=== PATIENT | male | born 1970 | race American Indian/Alaskan Native ===

== ENCOUNTER 2018-05-25 13:09 | Inpatient (IN) | payer OTHER, BC ==
[2018-05-25 13:10] VITALS: BMI 40.8
[2018-05-25] MEDS ORDERED: Tdap Vaccine 0.5 ml Vial (10-64 yrs) IM ONE ×2 (15:36→16:44)
--- NOTE | 2018-05-25 16:11 | ED PDOC ---
HPI: Trauma/Fall - HPI Time Seen by Provider: 05/25/18 15:21 Chief Complaint (Nursing): Trauma Chief Complaint (Provider): Trauma History Per: Patient History/Exam Limitations: no limitations Onset/Duration Of Symptoms: Days (x 1) Injury Occurred (Timing): Just Before Arrival Location Of Injury: Right: Knee, Left: Knee Additional Complaint(s): 48 year old male with no significant medical history presents for evaluation of bilateral knee pain with right worse than left knee. 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 He accidentally ran into a door when doing so. Patient states that his knees hit the door before he fell to the ground and also landed on both his knees. He complains of difficulty bending his right knee and swellin g at the site as well as an abrasion. Also has pain to LEFT knee. He has been unable to walk since injury. Denies a history of knee injuries, LOC, other injury and distal weakness or numbness. PMD: none provided Past Medical History Reviewed: Historical Data, Nursing Documentation, Vital Signs Vital Signs: Last Vital Signs Temp 97.7 F 05/25/18 13:36 Pulse 88 05/25/18 13:36 Resp 20 05/25/18 13:36 BP 173/103 H 05/25/18 13:36 Pulse Ox 100 05/25/18 13:36 - Medical History PMH: HTN (not on medication) - Surgical History Surgical History: No Surg Hx - Family History Family History: States: Unknown Family Hx - Social History Current smoker - smoking cessation education provided: No - Immunization History Hx Tetanus Toxoid Vaccination: Yes Hx Influenza Vaccination: Yes Hx Pneumococcal Vaccination: Yes - Home Medications Home Medications: Ambulatory Orders Medication Instructions Recorded RX: No Known Home Med 05/26/18 - Allergies Allergies/Adverse Reactions: Allergies Allergy/AdvReac Type Severity Reaction Status Date / Time No Known Allergies Allergy Verified 05/25/18 13:36 Review of Systems ROS Statement: Except As Marked, All Systems Reviewed And Found Negative Musculoskeletal: Positive for: Leg Pain (bilateral knee pain; right side worse than left) Neurological: Negative for: Weakness, Numbness, Headache, Dizziness Physical Exam - Reviewed Nursing Documentation Reviewed: Yes Vital Signs Reviewed: Yes - Physical Exam Appears: Positive for: In Acute Distress (mild painful distress) Head Exam: Positive for: ATRAUMATIC, NORMOCEPHALIC Skin: Positive for: Warm, Dry Eye Exam: Positive for: EOMI, PERRL Neck: Positive for: Painless ROM, Supple Respiratory: Negative for: Accessory Muscle Use, Respiratory Distress Gastrointestinal/Abdominal: Positive for: Soft (obese) Back: Positive for: Normal Inspection. Negative for: Decreased ROM Extremity: Positive for: Normal ROM (Full ROM at left knee without deformity or laxity; minimal swelling at left knee), Deformity (irregular dried abrasion at the patella of right knee; moderate fluctuance surrounding knee especially on the medial side), Other (inability to flex right knee without significant pain; knee is held in extension; otherwise, distally neurovascularly intact) Neurologic/Psych: Positive for: Alert, Oriented (x 3). Negative for: Motor/Sensory Deficits - Laboratory Results Result Diagrams: 05/25/18 23:31 05/25/18 23:31 - ECG O2 Sat by Pulse Oximetry: 100 (RA) Pulse Ox Interpretation: Normal Medical Decision Making Medical Decision Makin:36 Impression: bilateral knee pain; contusion vs fracture Initial Plan: --bilateral knee x-rays --Motrin 600 mg PO --Tetanus .5 ml IJ --Ice Knee xrays demonstrated in fracture or dislocation. However attempted to walk using knee immobilizer and crutches and unable to bear any weight. CT ordered to r/o smaller fracture. 19:31 --CT lower extremities --Ultram 50 ml PO Name: LOS COLÓN Exam Date: May 25, 2018 9:42:23 PM EST Modality Type: CT Description: CT - KNEES, BILATERAL - PATELLOFEMORAL Gender: M Laterality: Bilateral : 68 Referring Physician: Emergency Room direct number CLINICAL HISTORY: Bilateral knee pain S/P fall. TECHNIQUE: Axial CT sequences were obtained through both knees with reformatted coronal and sagittal sequences obtained. COMMENTS: On the right side, eosj-pz-uloyqkor degenerative changes are present. Enthesopathy is noted at the quadriceps insertion. There is small suprapatellar joint effusion. There is large prepatellar fluid collection consistent with prepatellar bursitis. Several bubbles of air are present in the prepatellar space. There is also a single bubble of air present in the lateral compartment space. No acute fracture is identified. There are several ossific fragments present. On the left side, similar changes are present. There is enthesopathy noted at the quadriceps insertion. There are several ossific fragments present in the infrapatellar space, may represent old avulsion injury. Tryrg-ze-duqegekk size joint effusion is present. There is a single bubble of air present in the lateral compartment space. IMPRESSION: 1. Enthesopathy at the quadriceps insertion of bilateral knees. 2. Jxnd-ew-kwpueksj degenerative changes of right knee. 3. Small suprapatellar joint effusion of right knee. 4. Prepatellar bursitis of right knee. 5. Vlqmf-yj-uymccmah size joint effusion of left knee. Electronically signed on May 25, 2018 10:47:57 PM EST by: Telly Molina M.D., MBA Certified By [facility] & [facility] Fellowship Trained MRI and CT Specialist On attempt to walk pt fell to ground again, required multiple people to bring patient back on stretcher. Pt at high risk for traumatic injury with his inability to bear weight on either leg. At this point pt needs hospitalization for further management: ortho evaluation and initiate inpatient therapy for ambulation. Scribe Attestation: Documented by hCristina Marcano, acting as a scribe for Ruby Milan MD Provider Scribe Attestation: All medical record entries made by the Scribe were at my direction and personally dictated by me. I have reviewed the chart and agree that the record accurately reflects my personal performance of the history, physical exam, medi tessa decision making, and the department course for this patient. I have also personally directed, reviewed, and agree with the discharge instructions and disposition. Disposition - Clinical Impression Clinical Impression: Knee injuries, High blood pressure, Knee abrasion Discussed With : Raymundo Taylor Doctor Will See Patient In The: Hospital Counseled Patient/Family Regarding: Studies Performed, Diagnosis - Disposition Disposition Time: 23:00 Condition: FAIR - Pt Status Changed To: Hospital Disposition Of: Inpatient - Admit Certification Admit to Inpatient:: After my assessment, the patient will require hospitalization for at least two midnights. This is because of the severity of symptoms shown, intensity of services needed, and/or the medical risk in this patient being treated as an outpatient. - POA Present On Arrival: Falls Or Trauma
[2018-05-25 23:51] LABS: BASO # 0.1 K/uL (0.0-0.2); BASO % 0.7 % (0.0-2.0); EOS % 0.3 % (0.0-4.0); HEMOGLOBIN 13.9 g/dL (12.0-18.0); LYMPH # 1.3 K/uL (1.0-4.3); LYMPH % 15.5 % (20.0-40.0); MEAN CELL VOLUME 89.8 fl (80.0-94.0); MEAN CORPUSCULAR HEMOGLOBIN 30.2 pg (27.0-31.0); MEAN CORPUSCULAR HGB CONC 33.6 g/dL (33.0-37.0); MEAN PLATELET VOLUME 11.1 fl (7.2-11.7); MONO # 0.6 K/uL (0.0-0.8); MONO % 7.3 % (0.0-10.0); NEUT # 6.4 K/uL (1.8-7.0); NEUT % 76.2 % (50.0-75.0); RBC 4.61 Mil/uL (4.40-5.90); RED CELL DISTRIBUTION WIDTH 14.6 % (11.5-14.5); WHITE BLOOD COUNT 8.4 K/uL (4.8-10.8)
[2018-05-26 00:01] LABS: BLOOD UREA NITROGEN 17 mg/dl (9-20); CALCIUM 9.4 mg/dL (8.4-10.2); GFR NON-AFRICAN AMERICAN > 60
--- NOTE | 2018-05-26 06:52 | CT ---
Date of service: 05/25/2018 PROCEDURE: HISTORY: SEVERE BILATERAL KNEE PAIN S/P FALL COMPARISON: TECHNIQUE: FINDINGS: Extensive bilateral superficial patellar bursal edema. Mild to moderate joint effusion on the left. Probable patellar tendon tear on the left with patella Mari Aisabel. Additional patellar tendon tear on the right with patella [place] and avulsion fracture of the inferior right along the apex. IMPRESSION: Probable bilateral patellar tendon tear is with an avulsion fracture of the right patellar apex. Bilateral joint effusions, left greater than right. Extensive prepatellar bursal edema.
--- NOTE | 2018-05-26 07:53 | RAD ---
Date of service: 05/25/2018 HISTORY: knee pain s/p injury COMPARISON: None available. FINDINGS: BONES: Normal. No fracture. JOINTS: Normal. No osteoarthritis. SOFT TISSUE: Normal. OTHER FINDINGS: None . IMPRESSION: Normal Bone Xray.
[2018-05-26] MEDS ORDERED: Enoxaparin 40 mg Syringe SC SCH (09:00)
[2018-05-26] MEDS ORDERED: Dextrose 5%/0.9% NS 1,000 ML IV SCH (16:15)
[2018-05-26 17:41] LABS: INR 1.1; PROTHROMBIN TIME 12.4 Seconds (9.8-13.1)
[2018-05-27] MEDS ORDERED: Dextrose 5%/0.9% NS 1,000 ML IV SCH (02:17)
--- NOTE | 2018-05-27 10:33 | CP.PCM.HP ---
History of Present Illness - History of Present Illness History of Present Illness: CC: Fall and B/L Knee Pain History of Present Illness A 48 year old male with HX of Essential HTN presents for evaluation of bilateral knee pain with right worse than left knee after a mechanical fall. 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 He accidentally ran into a door when doing so states that his knees hit the door before he fell to the ground and also landed on both his knees. He complains of difficulty bending his right knee and swelling at the site as well as an abrasion. Also has pain to Left knee 4- 11/28. He has been unable to walk since injury. Denies a history of knee injuries, LOC, other injury and distal weakness or numbness. Attempt to walk in the [facility] caused another fall. Denies any ches pain, sob or light headedness. Present on Admission - Present on Admission Any Indicators Present on Admission: No Review of Systems - Review of Systems All systems: reviewed and no additional remarkable complaints except Review of Systems: as per HPI Past Patient History - Past Medical History & Family History Past Medical History?: Yes Past Family History: Reviewed and not pertinent - Past Social History Smoking Status: Never Smoked Alcohol: Social Drugs: Denies - CARDIAC Hx Hypertension: Yes (not on medication) - MUSCULOSKELETAL/RHEUMATOLOGICAL Hx Falls: Yes - PSYCHIATRIC Hx Emotional Abuse: No Hx Physical Abuse: No Hx Substance Use: No - SURGICAL HISTORY Hx Surgeries: Yes Hx Herniorrhaphy: Yes (RIGHT INGUINAL HERNIA 2010) - ANESTHESIA Hx Anesthesia: Yes Hx Anesthesia Reactions: No Hx Malignant Hyperthermia: No Meds Allergies/Adverse Reactions: Allergies Allergy/AdvReac Type Severity Reaction Status Date / Time No Known Allergies Allergy Verified 05/25/18 13:36 Physical Exam - Constitutional Appears: No Acute Distress - Head Exam Head Exam: ATRAUMATIC, NORMAL INSPECTION, NORMOCEPHALIC - Eye Exam Eye Exam: EOMI, Normal appearance, PERRL Pupil Exam: NORMAL ACCOMODATION, PERRL - ENT Exam ENT Exam: Mucous Membranes Moist, Normal Exam - Neck Exam Neck exam: Positive for: Full Rom, Normal Inspection - Respiratory Exam Respiratory Exam: Clear to Auscultation Bilateral, NORMAL BREATHING PATTERN - Cardiovascular Exam Cardiovascular Exam: REGULAR RHYTHM, +S1, +S2, Systolic Murmur - GI/Abdominal Exam GI & Abdominal Exam: Normal Bowel Sounds, Soft. absent: Tenderness - Extremities Exam Extremities exam: Positive for: normal inspection Additional comments: Immobolized - Back Exam Back exam: NORMAL INSPECTION - Neurological Exam Neurological exam: Alert, CN II-XII Intact, Normal Gait, Oriented x3, Reflexes Normal - Psychiatric Exam Psychiatric exam: Normal Affect, Normal Mood - Skin Skin Exam: Dry, Intact, Normal Color, Warm Results - Vital Signs Recent Vital Signs: Last Vital Signs Temp 98 F 05/27/18 08:35 Pulse 85 05/27/18 09:30 Resp 18 05/27/18 08:35 BP 157/85 H 05/27/18 09:30 Pulse Ox 96 05/27/18 08:35 - Labs Result Diagrams: 05/25/18 23:31 05/25/18 23:31 Labs: Laboratory Results - last 24 hr 05/26/18 17:15 PT 12.4 INR 1.1 - Imaging and Cardiology CT scan of Lower Extremity: Status: Report reviewed by me Additional comment: Date of service: 05/25/2018 PROCEDURE: HISTORY: SEVERE BILATERAL KNEE PAIN S/P FALL COMPARISON: TECHNIQUE: FINDINGS: Extensive bilateral superficial patellar bursal edema. Mild to moderate joint effusion on the left. Probable patellar tendon tear on the left with patella [place]. Additional patellar tendon tear on the right with patella [place] and avulsion fracture of the inferior right along the apex. IMPRESSION: Probable bilateral patellar tendon tear is with an avulsion fracture of the right patellar apex. Bilateral joint effusions, left greater than right. Extensive prepatellar bursal edema. Chest x-ray Status: Report reviewed by me Additional comment: Date of service: 05/26/2018 HISTORY: medical clearance COMPARISON: No prior. FINDINGS: LUNGS: No active pulmonary disease. PLEURA: No significant pleural effusion identified, no pneumothorax apparent. CARDIOVASCULAR: No aortic atherosclerotic calcification present. Normal cardiac size. No pulmonary vascular congestion. OSSEOUS STRUCTURES: No significant abnormalities. VISUALIZED UPPER ABDOMEN: Normal. OTHER FINDINGS: None. IMPRESSION: No active disease. Assessment & Plan (1) Traumatic rupture of right patella Status: Acute Priority: High (2) Patellar tendon rupture Status: Acute Priority: High (3) Unable to ambulate Status: Acute Priority: High (4) Hypertension Status: Acute Priority: Medium (5) Morbid obesity Status: Acute Priority: Medium - Assessment and Plan (Free Text) Plan: Pain Medication PRN Labetalol 100mg BID Norvasc 5 mg PO daily IVF Cardiology Consult for Cardiac Clearance Scheduled for Right Patellar Repair Surgery on 05/27/2018 NPO Past Midnight METs Equivalent >4 Medically Cleared for the Surgery with Acceptable Risk if Cleared by [facility].
--- NOTE | 2018-05-27 10:36 | RAD ---
Date of service: 05/26/2018 HISTORY: medical clearance COMPARISON: No prior. FINDINGS: LUNGS: No active pulmonary disease. PLEURA: No significant pleural effusion identified, no pneumothorax apparent. CARDIOVASCULAR: No aortic atherosclerotic calcification present. Normal cardiac size. No pulmonary vascular congestion. OSSEOUS STRUCTURES: No significant abnormalities. VISUALIZED UPPER ABDOMEN: Normal. OTHER FINDINGS: None. IMPRESSION: No active disease.
[2018-05-27] MEDS ORDERED: Bacitracin Ointment 30 GM TUBE ONE (11:05)
[2018-05-27] MEDS ORDERED: ceFAZolin IV 1 gm in Dextrose 2 GM/100 ML BAG IVPB ONE (11:05)
[2018-05-27] MEDS ORDERED: Lactated Ringer's 1,000 ML IV ONE (11:26)
[2018-05-27] MEDS ORDERED: Midazolam 2 MG/2 ML VIAL ONE (11:30)
[2018-05-27] MEDS ORDERED: Propofol 10 mg/ml Inj (20 ML) ONE (11:30)
[2018-05-27] MEDS ORDERED: Rocuronium 10 mg/ml (5 ml) ONE (11:32)
[2018-05-27] MEDS ORDERED: Desflurane Inhalation Anesthetic Liq (240 ml) ONE (12:43)
[2018-05-27] MEDS ORDERED: Neostigmine 1:1000 (1 mg/ml) Inj ONE (13:13)
[2018-05-27] MEDS ORDERED: Bupivacaine 0.5% Inj(30mL) ONE (13:25)
[2018-05-27] MEDS ORDERED: Oxycodone/Acetaminophen 5/325 mg Tab PO PRN (13:46)
[2018-05-27] MEDS: HYDROmorphone 0.5 mg/0.5 ml ISec IVP PRN ×2 (14:00→14:15)
[2018-05-27] MEDS: Lactated Ringer's 1,000 ML IV SCH (15:20)
[2018-05-27] MEDS: Oxycodone/Acetaminophen 5/325 mg Tab PO PRN (16:52)
--- NOTE | 2018-05-27 21:07 | CP.PCM.PN ---
Subjective - Date & Time of Evaluation Date of Evaluation: 05/27/18 Time of Evaluation: 16:35 Objective - Vital Signs/Intake and Output Vital Signs (last 24 hours): Temp Pulse Resp BP Pulse Ox 98.3 F 94 H 16 161/91 H 96 05/27/18 19:38 05/27/18 19:38 05/27/18 19:38 05/27/18 19:38 05/27/18 19:38 Intake and Output: 05/27/18 05/28/18 18:59 06:59 Intake Total 1050 Output Total 400 Balance 650 - Medications Medications: Current Medications Acetaminophen (Tylenol 325mg Tab) 650 mg PO Q6 PRN PRN Reason: Pain, moderate (4-7) Acetaminophen (Tylenol 325mg Tab) 325 mg PO Q4 PRN PRN Reason: Pain, Mild (1-3) Lactated Ringer's (Lactated Ringer's) 1,000 mls @ 100 mls/hr IV .Q10H OTIS Last Admin: 05/27/18 15:20 Dose: 0 mls Oxycodone/Acetaminophen (Percocet 5/325 Mg Tab) 1 tab PO Q4 PRN PRN Reason: Pain, moderate (4-7) Stop: 05/30/18 13:47 Last Admin: 05/27/18 16:52 Dose: 1 tab Oxycodone/Acetaminophen (Percocet 5/325 Mg Tab) 2 tab PO Q6 PRN PRN Reason: Pain, severe (8-10) Stop: 05/30/18 13:47 Tramadol HCl (Ultram) 50 mg PO Q6 PRN PRN Reason: Pain, severe (8-10) Last Admin: 05/27/18 20:54 Dose: 50 mg - Labs Labs: 05/25/18 23:31 05/25/18 23:31 PT 12.4 Seconds (9.8-13.1) 05/26/18 17:15 INR 1.1 05/26/18 17:15 Assessment and Plan (1) Traumatic rupture of right patella Status: Acute (2) Patellar tendon rupture Status: Acute (3) Unable to ambulate Status: Acute (4) Hypertension Status: Acute (5) Morbid obesity Status: Acute
--- NOTE | 2018-05-27 21:27 | CON ---
DATE: 05/27/2018 REASON FOR CONSULTATION: Preoperative evaluation. HISTORY OF PRESENT ILLNESS: The patient is a 48-year-old obese male, who weighs about 280 pounds, has a history of hypertension, but was not treated, presented because of a fall. 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 The patient sustained bilateral knee ligament injury and is being considered for surgery today. The patient denies any retrosternal chest pain. Denies any dizziness or syncope and is unaware of any prior cardiac history. SOCIAL HISTORY: Nonsmoker, occasional drinker. 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 MEDICATIONS: Ultram 50 mg every 6 hours, the patient did receive hydralazine 20 mg as a single dose and Norvasc 5 mg as a single dose and labetalol 100 mg as a single dose. REVIEW OF SYSTEMS: No nausea or vomiting. No fever or chills. PHYSICAL EXAMINATION: GENERAL: The patient is a middle-aged male, who does not appear to be in acute distress. VITAL SIGNS: Blood pressure 157/85, heart rate 85, temperature 98, and respirations 18. HEENT: Normocephalic. CHEST: Clear. HEART: S1 and S2 regular. ABDOMEN: Soft. EXTREMITIES: No edema. LABORATORY DATA: Today's SMA-7: Sodium 140, potassium 3.8, chloride 105, CO2 of 24, glucose 117, BUN 17, and creatinine 0.9. PT and INR are within normal limits. Hemoglobin and hematocrit are 15.9 and 41.4. White count and platelet count are within normal limits. EKG revealed sinus rhythm, questionable incomplete right bundle branch block, possible left atrial enlargement. Chest x-ray, no active disease. Lower extremity CT scan, extensive bilateral superficial patellar bursal edema, mild to moderate joint effusion on the left, probable patellar tendon tear on the left with patella gogo. Additional patellar tendon tear on the right with patella gogo and avulsion fracture of the inferior right along the apex. FINAL IMPRESSION: Bilateral patellar tendon tear with an avulsion fracture of the right patellar apex, bilateral joint effusion, left greater than right, extensive prepatellar bursal edema. ASSESSMENT: 1. Status post fall and bilateral patellar tendon tear and avulsion fracture of the apex of the right patella. 2. Hypertension. RECOMMENDATIONS: The patient can undergo a knee surgery from the cardiac point of view with postoperative telemetry monitoring, close preoperative blood pressure are indicated. Postoperative anticoagulation is also indicated for deep vein thrombosis prophylaxis. Jorge Gerber MD
--- NOTE | 2018-05-28 00:58 | OP ---
PROCEDURE DATE: 05/27/2018 ATTENDING PHYSICIAN: Lorri Sorto MD SHIPPING CLERK CRATING: Martinez Mata MD PREOPERATIVE DIAGNOSES: 1. Right knee complete patellar tendon rupture. 2. Left knee complete patellar tendon rupture. POSTOPERATIVE DIAGNOSES: 1. Right knee complete patellar tendon rupture. 2. Left knee complete patellar tendon rupture. PROCEDURES: 1. Right knee open debridement of bone and soft tissue. 2. Open repair of patellar tendon. 3. Open debridement of bone and soft tissue of left knee. 4. Left open patellar tendon repair. TYPE OF ANESTHESIA: General. ESTIMATED BLOOD LOSS: 100 mL. SPECIMEN: None. COMPLICATIONS: None. HISTORY: Patient is a 48-year-old male who had a mechanical fall landing on to his both knees. Patient was brought to the emergency room where the x-rays were negative for any fracture or dislocation. Patient was unable to straight leg raise. On a CT scan, patient had apparent complete patellar tendon rupture of both knees. Patient was admitted and taken to the operating room next day for patellar tendon repair. I have reviewed the risks and benefits of the surgery with the patient in detail. The risks included but not limited to bleeding, infection, neurovascular damage, continued pain, stiffness, failure to repair, need further surgery, blood clot among others. Patient fully understood the risks and benefits and opted to proceed. DESCRIPTION OF PROCEDURE: On the day of the procedure, patient was brought to preop holding area. A laterality sheet was completed confirming patient's bilateral knees to be the correct operative. Informed consent was signed from the patient and both knees were marked. Patient was taken to the operative room. He underwent general anesthesia. A padded tourniquet was applied to patient's bilateral thigh. He was given appropriate prophylactic antibiotics. The both knees were draped and prepped in standard manner. First, a timeout was completed confirming patient's bilateral knees to be the correct operative site. First, we proceeded with the right knee fixation. The tourniquet was inflated to 350 mmHg. A 6 cm midline incision was made extending over the patella to the tibial tubercle. Skin dissection was taken down. There was complete tear of the patellar tendon that was noted with extensive degeneration of the patellar tendon. An extensive intrasubstance tearing using the 10-blade curettage and rongeur, extensive soft tissue and bone debridement was performed. The hematoma was evacuated for fixation. Two 4.75 SwiveLock anchors were placed on the inferior pole of the patella, and the FiberTape was whipstitched through the patellar tendon in a locking fashion, and all the 4 limbs of FiberTape was tied distally for added fixation. Addition #2 FiberWire was passed from the tendon. An additional 4.75 SwiveLock anchor was placed for internal brace. The retinaculum was also closed and repaired using #2 FiberWire sutures. Finally, the knee was taken to the range of motion, and it was found to be stable without any gapping of the patellar tendon. Next, the wound was copiously irrigated and was closed in standard manner, and a sterile dressing was applied. The tourniquet was deflated. Next, we proceeded with left knee patellar tendon repair. The tourniquet was inflated at 350 mmHg. A similar 6 cm incision was made extending over the patellar tendon. Skin dissection was taken down until the patellar tendon rupture was identified. There was a complete disruption of the patellar tendon. Patellar tendon with intrasubstance tearing using the #10 blade, rongeur and the curette. Extensive soft tissue and bone debridement was performed. Next, in a similar fashion two 4.75 SwiveLock anchors were placed, closed with FiberTape and FiberWire into the inferior pole of patella. The FiberTape was whipstitched through the patellar tendon and tied distally. Next, for additional fixation, FiberWire was placed, and additional SwiveLock anchor was placed at the tibial tubercle. The knee was taken through range of motion, was found to be stable. Next, the retinaculum was closed using #2 FiberWire sutures. The skin was closed in standard manner. Standard sterile dressing was applied. Tourniquet was deflated. Patient was extubated, transferred through a stretcher, taken to recovery room. He was placed in knee mobilizer. His postop instructions included weightbearing as tolerated with knee in full and strict extension. There was no complication of surgery. Dr. Martinez Mata is a board certified orthopedic surgeon who was present for the entirety of the case and his participation was crucial in patient positioning, retraction of critical neurovascular structure and for successful completion of his surgery. Imran Noreen, MD [facility] # [id number] ALLA
[2018-05-28] MEDS: Oxycodone/Acetaminophen 5/325 mg Tab PO PRN ×3 (01:06→16:49)
[2018-05-28] MEDS: Lactated Ringer's 1,000 ML IV SCH (01:13)
--- NOTE | 2018-05-28 02:09 | CON ---
DATE: 05/27/2018 CHIEF COMPLAINT: Bilateral knee patella tendon rupture. HISTORY OF PRESENT ILLNESS: The patient is a 48-year-old male who had a mechanical fall. The patient landed onto his both knees, was unable to ambulate after the fall. The patient presented to the emergency room, but the x-rays and CT scan were taken and no fractures were noted. The patient was unable to walk, unable to straight leg raise or move his bilateral legs, denies pain in any other extremity or joint, denies loss of consciousness currently, not in any acute distress, denies any paresthesias or motor weakness. PHYSICAL EXAMINATION: EXTREMITIES: Examination of the patient's bilateral knee, there is swelling and ecchymosis, there is apparent full thickness defects of the both patella tendons with proximal retraction of the patella. The patient is unable to straight leg raise and extend against gravity. Rest of the exam is limited secondary to pain. Neurovascularly intact distally. IMAGING: I have reviewed the patient's x-rays and CT scan of both knees which shows a complete full thickness patella tendon rupture with proximal retraction of the patella. No fractures are noted. ASSESSMENT AND PLAN: A 48-year-old male with bilateral acute patella tendon rupture treatment. I had a detailed discussion with the patient, reviewing the history, physical exam, and imaging findings due to complete rupture patella tendon, the patient will be taken to the operating room for open bilateral knee patella tendon repair and all indicated procedures. I have reviewed the risks and benefits of the surgery with the patient in detail and the alternatives and the patient would like to proceed. Lorri Sorto MD
[2018-05-28] MEDS ORDERED: Labetalol 5 mg/ml Inj 20ML IVP STA (08:12)
[2018-05-28] MEDS: Docusate-Senna 50 mg-8.6 mg Tab PO SCH (08:14)
[2018-05-28] MEDS: Enoxaparin 40 mg Syringe SC SCH (08:15)
[2018-05-28] MEDS ORDERED: Oxycodone/Acetaminophen 5/325 mg Tab PO PRN (11:30)
--- NOTE | 2018-05-28 11:30 | CP.PCM.PN ---
Subjective - Date & Time of Evaluation Date of Evaluation: 05/28/18 Time of Evaluation: 11:00 - Subjective Subjective: Patient states he was able to get OOB with PT, but that his pain is mod-severe and not controlled with pain medication. He has one step down into his home. Denies CP/SOB/dizziness/numbness/tingling. Objective - Vital Signs/Intake and Output Vital Signs (last 24 hours): Temp Pulse Resp BP Pulse Ox 98.9 F 85 20 187/103 H 93 L 05/28/18 07:56 05/28/18 08:28 05/28/18 07:56 05/28/18 08:28 05/28/18 07:56 - Medications Medications: Current Medications Acetaminophen (Tylenol 325mg Tab) 325 mg PO Q4 PRN PRN Reason: Pain, Mild (1-3) Amlodipine Besylate (Norvasc) 10 mg PO DAILY [facility] Enoxaparin Sodium (Lovenox) 40 mg SC DAILY [facility]; Protocol Last Admin: 05/28/18 08:15 Dose: 40 mg Oxycodone/Acetaminophen (Percocet 5/325 Mg Tab) 1 tab PO Q4 PRN PRN Reason: Pain, moderate (4-7) Stop: 05/30/18 13:47 Last Admin: 05/28/18 08:09 Dose: 1 tab Senna/Docusate Sodium (Senokot S 50 Mg-8.6 Mg) 2 tab PO 0900 [facility] Last Admin: 05/28/18 08:14 Dose: 2 tab Tramadol HCl (Ultram) 50 mg PO Q6 PRN PRN Reason: Pain, severe (8-10) Last Admin: 05/28/18 05:26 Dose: 50 mg - Labs Labs: 05/25/18 23:31 05/25/18 23:31 PT 12.4 Seconds (9.8-13.1) 05/26/18 17:15 INR 1.1 05/26/18 17:15 - Extremities Exam Additional comments: +ROM ankle/toes BLE calves soft NT neg homans sensation intact BLE+DP/PT pulses knee immobilizers intact, again reiterated they are not to be removed at any time Assessment and Plan (1) Rupture of right patellar tendon Assessment & Plan: POD#1 s/p B patellar tendon repairs knee immobilizers at all times not to be removed, reinforced to patient will need VTE proph on d/c continue lovenox x 30 days minimum PT/OT d/c planning orthopedically stable for d/c f/u labs d/w Dr. Sorto, agrees with above Status: Acute (2) Rupture of left patellar tendon Status: Acute (3) Morbid obesity with BMI of 40.0-44.9, adult Status: Acute
[2018-05-28 11:59] LABS: HEMOGLOBIN 13.8 g/dL (12.0-18.0); MEAN CELL VOLUME 91.1 fl (80.0-94.0); MEAN CORPUSCULAR HEMOGLOBIN 30.3 pg (27.0-31.0); MEAN CORPUSCULAR HGB CONC 33.3 g/dL (33.0-37.0); RBC 4.55 Mil/uL (4.40-5.90); RED CELL DISTRIBUTION WIDTH 14.4 % (11.5-14.5); WHITE BLOOD COUNT 11.9 K/uL (4.8-10.8)
[2018-05-28 12:29] LABS: BLOOD UREA NITROGEN 13 mg/dl (9-20); CALCIUM 9.3 mg/dL (8.4-10.2); GFR NON-AFRICAN AMERICAN > 60
--- NOTE | 2018-05-28 13:46 | CARD ---
APPROVED REPORT Date of service: 05/26/2018 EKG Measurement Heart [id number] <Conclusion> Normal sinus rhythm Possible Left atrial enlargement Incomplete right bundle branch block Borderline ECG
--- NOTE | 2018-05-28 16:47 | CARD ---
APPROVED REPORT Date of service: 05/28/2018 EKG Measurement Heart [id number] <Conclusion> Sinus tachycardia Otherwise normal ECG
--- NOTE | 2018-05-28 17:28 | CARD ---
APPROVED REPORT Date of service: 05/28/2018 EXAM: Two-dimensional and M-mode echocardiogram with Doppler and color Doppler. Other Information Quality : GoodRhythm : Tachycardia INDICATION Hypertension/HCVD 2D DIMENSIONS IVSd1.38 (0.7-1.1cm)LVDd4.37 (3.9-5.9cm) LVOT Diameter1.96 (1.8-2.4cm)PWd1.67 (0.7-1.1cm) IVSs1.62 (0.8-1.2cm)LVDs2.83 (2.5-4.0cm) FS (%) 35.3 %PWs1.95 (0.8-1.2cm) M-Mode DIMENSIONS Left Atrium (MM)4.14 (2.5-4.0cm)IVSd1.52 (0.7-1.1cm) Aortic Root3.17 (2.2-3.7cm)LVDd5.38 (4.0-5.6cm) Aortic Cusp Exc.2.18 (1.5-2.0cm)PWd1.57 (0.7-1.1cm) IVSs1.96 cmFS (%) 43 % LVDs3.06 (2.0-3.8cm)PWs2.18 cm Aortic Valve AoV Peak Csqsszwh476.1cm/sAoV VTI29.1cmAO Peak GR.12mmHg LVOT Peak Hhjinkfg317.5cm/sLVOT VTI21.56cmAO Mean GR.8mmHg PAUL (VMAX)0.07at4TFI (VTI)0.93cm2 Mitral Valve E/A ratio0.0 TDI E/Lateral E'0.0E/Medial E'0.0 LEFT VENTRICLE The left ventricle is normal size. There is mild concentric left ventricular hypertrophy. The left ventricular systolic function is normal. The estimated ejection fraction is 60-65% No regional wall motion abnormalities noted.. Transmitral Doppler flow pattern is Grade I-abnormal relaxation pattern. No left ventricle thrombus noted on this study. There is no ventricular septal defect visualized. There is no left ventricular aneurysm. There is no mass noted in the left ventricle. RIGHT VENTRICLE The right ventricle is normal size. There is normal right ventricular wall thickness. The right ventricular systolic function is normal. ATRIA The left atrium is mildly dilated. The right atrium size is normal. The interatrial septum is intact with no evidence for an atrial septal defect. AORTIC VALVE The aortic valve is normal in structure. No aortic regurgitation is present. There is no aortic valvular stenosis. There is no aortic valvular vegetation. MITRAL VALVE The mitral valve is normal in structure. There is no evidence of mitral valve prolapse. There is no mitral valve stenosis. There is mild mitral valve regurgitation noted. TRICUSPID VALVE The tricuspid valve is normal in structure. There is trivial tricuspid valve regurgitation noted. There is no tricuspid valve prolapse or vegetation. There is no tricuspid valve stenosis. PULMONIC VALVE The pulmonary valve is normal in structure. There is no pulmonic valvular regurgitation. There is no pulmonic valvular stenosis. GREAT VESSELS The aortic root is normal in size. The ascending aorta is normal in size. The pulmonary artery is normal. The IVC is normal in size and collapses >50% with inspiration. PERICARDIAL EFFUSION There is no pericardial effusion. There is no pleural effusion. <Conclusion> There is mild concentric left ventricular hypertrophy. The estimated ejection fraction is 60-65% Transmitral Doppler flow pattern is Grade I-abnormal relaxation pattern. The left atrium is mildly dilated. There is mild mitral valve regurgitation noted. There is trivial tricuspid valve regurgitation noted.
--- NOTE | 2018-05-28 19:58 | PN ---
DATE: 05/28/2018 SUBJECTIVE: The patient underwent bilateral patellar tendon repair. He denies chest pain. No reports of ventricular arrhythmia. PHYSICAL EXAMINATION VITAL SIGNS: Blood pressure 171/97, heart rate 98, temperature 98.3, respirations 20. HEENT: Normocephalic. CHEST: Clear. HEART: S1 and S2 regular. EXTREMITIES: No edema. LABORATORY DATA: Today's hemoglobin and hematocrit are 13.8 and 41.5, white count 11.9 and platelet count 144,000. Today's SMA-7 is within normal limits except for glucose of 145. ASSESSMENT: 1. Status post bilateral patellar tendon repair. 2. Uncontrolled hypertension. 3. Obesity. RECOMMENDATIONS: Continue subcutaneous Lovenox 40 mg once a day. Continue Dilaudid 0.5 mg every 4 hours p.r.n. Continue Percocet two tablets every 4 hours p.r.n. Obtain 12-lead EKG postoperatively, and the patient is scheduled for an echocardiogram. Jorge Gerber MD
[2018-05-29] MEDS: Oxycodone/Acetaminophen 5/325 mg Tab PO PRN ×3 (00:39→15:31)
--- NOTE | 2018-05-29 01:44 | CP.PCM.PN ---
Subjective - Date & Time of Evaluation Date of Evaluation: 05/28/18 Time of Evaluation: 07:15 Objective - Vital Signs/Intake and Output Vital Signs (last 24 hours): Temp Pulse Resp BP Pulse Ox 98.4 F 112 H 20 159/87 H 93 L 05/29/18 00:28 05/29/18 00:28 05/29/18 00:28 05/29/18 00:28 05/29/18 00:28 - Medications Medications: Current Medications Acetaminophen (Tylenol 325mg Tab) 325 mg PO Q4 PRN PRN Reason: Pain, Mild (1-3) Amlodipine Besylate (Norvasc) 10 mg PO DAILY [facility] Clonidine HCl (Catapres) 0.2 mg PO BID [facility] Last Admin: 05/28/18 22:00 Dose: 0.2 mg Enoxaparin Sodium (Lovenox) 40 mg SC DAILY [facility]; Protocol Last Admin: 05/28/18 08:15 Dose: 40 mg Hydromorphone HCl (Dilaudid) 0.5 mg IVP Q4H PRN PRN Reason: Pain, severe (8-10) Oxycodone/Acetaminophen (Percocet 5/325 Mg Tab) 2 tab PO Q4 PRN PRN Reason: Pain, moderate (4-7) Stop: 05/31/18 11:29 Last Admin: 05/29/18 00:39 Dose: 2 tab Oxycodone/Acetaminophen (Percocet 5/325 Mg Tab) 1 tab PO Q4 PRN PRN Reason: Pain, Mild (1-3) Stop: 05/30/18 13:47 Last Admin: 05/28/18 12:11 Dose: 1 tab Senna/Docusate Sodium (Senokot S 50 Mg-8.6 Mg) 2 tab PO 0900 [facility] Last Admin: 05/28/18 08:14 Dose: 2 tab Tramadol HCl (Ultram) 50 mg PO Q6 PRN PRN Reason: Pain, severe (8-10) Last Admin: 05/28/18 05:26 Dose: 50 mg - Labs Labs: 05/28/18 11:55 05/28/18 11:55 PT 12.4 Seconds (9.8-13.1) 05/26/18 17:15 INR 1.1 05/26/18 17:15 Assessment and Plan (1) Traumatic rupture of right patella Status: Acute (2) Patellar tendon rupture Status: Acute (3) Unable to ambulate Status: Acute (4) Hypertension Status: Acute (5) Morbid obesity Status: Acute
[2018-05-29 05:50] LABS: HEMOGLOBIN 13.7 g/dL (12.0-18.0); MEAN CELL VOLUME 90.1 fl (80.0-94.0); MEAN CORPUSCULAR HEMOGLOBIN 30.3 pg (27.0-31.0); MEAN CORPUSCULAR HGB CONC 33.7 g/dL (33.0-37.0); RBC 4.52 Mil/uL (4.40-5.90); RED CELL DISTRIBUTION WIDTH 14.4 % (11.5-14.5)
[2018-05-29 06:41] LABS: BLOOD UREA NITROGEN 25 mg/dl (9-20); CALCIUM 9.2 mg/dL (8.4-10.2); GFR NON-AFRICAN AMERICAN > 60
--- NOTE | 2018-05-29 08:47 | CP.PCM.PN ---
Subjective - Date & Time of Evaluation Date of Evaluation: 05/29/18 Time of Evaluation: 08:00 - Subjective Subjective: Patient seen and examined at bedside comfortable. Pain better controlled this AM. Tolerated PT well. No new complaints. Denies CP/SOB/N/V/fever. Objective - Vital Signs/Intake and Output Vital Signs (last 24 hours): Temp Pulse Resp BP Pulse Ox 98.4 F 96 H 18 126/74 94 L 05/29/18 07:53 05/29/18 07:53 05/29/18 07:53 05/29/18 07:53 05/29/18 07:53 - Medications Medications: Current Medications Acetaminophen (Tylenol 325mg Tab) 325 mg PO Q4 PRN PRN Reason: Pain, Mild (1-3) Amlodipine Besylate (Norvasc) 10 mg PO DAILY [facility] Clonidine HCl (Catapres) 0.2 mg PO BID [facility] Last Admin: 05/28/18 22:00 Dose: 0.2 mg Enoxaparin Sodium (Lovenox) 40 mg SC DAILY [facility]; Protocol Last Admin: 05/28/18 08:15 Dose: 40 mg Hydromorphone HCl (Dilaudid) 0.5 mg IVP Q4H PRN PRN Reason: Pain, severe (8-10) Oxycodone/Acetaminophen (Percocet 5/325 Mg Tab) 2 tab PO Q4 PRN PRN Reason: Pain, moderate (4-7) Stop: 05/31/18 11:29 Last Admin: 05/29/18 06:48 Dose: 2 tab Oxycodone/Acetaminophen (Percocet 5/325 Mg Tab) 1 tab PO Q4 PRN PRN Reason: Pain, Mild (1-3) Stop: 05/30/18 13:47 Last Admin: 05/28/18 12:11 Dose: 1 tab Senna/Docusate Sodium (Senokot S 50 Mg-8.6 Mg) 2 tab PO 0900 [facility] Last Admin: 05/28/18 08:14 Dose: 2 tab Tramadol HCl (Ultram) 50 mg PO Q6 PRN PRN Reason: Pain, severe (8-10) Last Admin: 05/28/18 05:26 Dose: 50 mg - Labs Labs: 05/29/18 04:00 05/29/18 06:00 PT 12.4 Seconds (9.8-13.1) 05/26/18 17:15 INR 1.1 05/26/18 17:15 - Extremities Exam Additional comments: RLE: Knee imm in place Dressings CDI Aquacel dressing CDI Dressings removed revealing incision CDI with antonino, no drainage sensation intact SP/DP/TN motor intact EHL/FHL/TA/G calves soft NT LLE: Knee imm in place Dressings CDI Aquacel dressing CDI Dressings removed revealing incision CDI with antonino, no drainage sensation intact SP/DP/TN motor intact EHL/FHL/TA/G calves soft NT Assessment and Plan (1) Rupture of left patellar tendon Assessment & Plan: POD#2 s/p b/l patella tendon repair -Dressings changed -Strict knee immobilizers at all times -DVT ppx -PT/OT -orthopedically stable for d/c -f/u in office in 7-10 days -above d/w Dr. Sorto in agreement Status: Acute (2) Rupture of right patellar tendon Status: Acute
[2018-05-29] MEDS: Docusate-Senna 50 mg-8.6 mg Tab PO SCH (09:02)
[2018-05-29] MEDS: Enoxaparin 40 mg Syringe SC SCH (09:02)
--- NOTE | 2018-05-29 17:00 | PN ---
DATE: 05/29/2018 SUBJECTIVE: The patient denies chest pain. He underwent physical therapy today. PHYSICAL EXAMINATION: VITAL SIGNS: Blood pressure 122/76, heart rate 98, temperature 98.2, respirations 18. HEENT: Normocephalic. CHEST: Clear. HEART: S1 and S2 regular. EXTREMITIES: No edema. LABORATORY DATA: Today's SMA-7: Sodium 136, potassium 4, chloride 97, CO2 of 29, glucose 148, BUN 25, creatinine 1. Today's CBC is within normal limits except for white count of 11. ASSESSMENT: 1. Status post bilateral patellar tendon tear repair. 2. Hypertension. 3. Obesity. RECOMMENDATIONS: Continue clonidine 0.2 mg twice a day, Lovenox 40 mg subcutaneous once a day, Norvasc 10 mg once a day. Jorge Gerber MD
--- NOTE | 2018-05-29 18:17 | CP.PCM.PN ---
Subjective - Date & Time of Evaluation Date of Evaluation: 05/29/18 Time of Evaluation: 15:20 Objective - Vital Signs/Intake and Output Vital Signs (last 24 hours): Temp Pulse Resp BP Pulse Ox 99.2 F 94 H 18 134/76 96 05/29/18 16:21 05/29/18 16:43 05/29/18 16:21 05/29/18 16:43 05/29/18 16:21 - Medications Medications: Current Medications Acetaminophen (Tylenol 325mg Tab) 325 mg PO Q4 PRN PRN Reason: Pain, Mild (1-3) Amlodipine Besylate (Norvasc) 10 mg PO DAILY [facility] Last Admin: 05/29/18 09:01 Dose: 10 mg Clonidine HCl (Catapres) 0.2 mg PO BID [facility] Last Admin: 05/29/18 16:43 Dose: 0.2 mg Enoxaparin Sodium (Lovenox) 40 mg SC DAILY [facility]; Protocol Last Admin: 05/29/18 09:02 Dose: 40 mg Hydromorphone HCl (Dilaudid) 0.5 mg IVP Q4H PRN PRN Reason: Pain, severe (8-10) Oxycodone/Acetaminophen (Percocet 5/325 Mg Tab) 2 tab PO Q4 PRN PRN Reason: Pain, moderate (4-7) Stop: 05/31/18 11:29 Last Admin: 05/29/18 15:31 Dose: 2 tab Senna/Docusate Sodium (Senokot S 50 Mg-8.6 Mg) 2 tab PO 0900 [facility] Last Admin: 05/29/18 09:02 Dose: 2 tab Tramadol HCl (Ultram) 50 mg PO Q6 PRN PRN Reason: Pain, severe (8-10) Last Admin: 05/28/18 05:26 Dose: 50 mg - Labs Labs: 05/29/18 04:00 05/29/18 06:00 PT 12.4 Seconds (9.8-13.1) 05/26/18 17:15 INR 1.1 05/26/18 17:15 Assessment and Plan (1) Traumatic rupture of right patella Status: Acute (2) Patellar tendon rupture Status: Acute (3) Unable to ambulate Status: Acute (4) Hypertension Status: Acute (5) Morbid obesity Status: Acute
[2018-05-30] MEDS: Oxycodone/Acetaminophen 5/325 mg Tab PO PRN ×3 (01:23→23:47)
[2018-05-30 05:18] LABS: HEMOGLOBIN 12.7 g/dL (12.0-18.0); MEAN CELL VOLUME 90.6 fl (80.0-94.0); MEAN CORPUSCULAR HEMOGLOBIN 29.9 pg (27.0-31.0); RBC 4.26 Mil/uL (4.40-5.90); WHITE BLOOD COUNT 11.1 K/uL (4.8-10.8)
[2018-05-30 05:43] LABS: BLOOD UREA NITROGEN 32 mg/dl (9-20); CALCIUM 9.1 mg/dL (8.4-10.2); GFR NON-AFRICAN AMERICAN > 60
[2018-05-30] MEDS: Docusate-Senna 50 mg-8.6 mg Tab PO SCH (08:16)
[2018-05-30] MEDS: Enoxaparin 40 mg Syringe SC SCH (08:17)
--- NOTE | 2018-05-30 12:05 | CP.PCM.PN ---
Subjective - Date & Time of Evaluation Date of Evaluation: 05/30/18 Time of Evaluation: 12:05 - Subjective Subjective: Patient seen and examined OOB to chair comfortable. Pain better controlled. No acute events overnight. No new complaints. Objective - Vital Signs/Intake and Output Vital Signs (last 24 hours): Temp Pulse Resp BP Pulse Ox 98.3 F 98 H 20 125/78 95 05/30/18 11:57 05/30/18 11:57 05/30/18 11:57 05/30/18 11:57 05/30/18 11:57 - Medications Medications: Current Medications Acetaminophen (Tylenol 325mg Tab) 325 mg PO Q4 PRN PRN Reason: Pain, Mild (1-3) Amlodipine Besylate (Norvasc) [address] [facility] Last Admin: 05/30/18 08:16 Dose: 10 mg Clonidine HCl (Catapres) 0.[address] [facility] Last Admin: 05/30/18 08:17 Dose: 0.2 mg Enoxaparin Sodium (Lovenox) [address] [facility]; Protocol Last Admin: 05/30/18 08:17 Dose: 40 mg Hydromorphone HCl (Dilaudid) 0.5 mg IVP Q4H PRN PRN Reason: Pain, severe (8-10) Oxycodone/Acetaminophen (Percocet 5/325 Mg Tab) 2 tab PO Q4 PRN PRN Reason: Pain, moderate (4-7) Stop: 05/31/18 11:29 Last Admin: 05/30/18 10:51 Dose: 2 tab Senna/Docusate Sodium (Senokot S 50 Mg-8.6 Mg) [address] [facility] Last Admin: 05/30/18 08:16 Dose: 2 tab Tramadol HCl (Ultram) 50 mg PO Q6 PRN PRN Reason: Pain, severe (8-10) Last Admin: 05/28/18 05:26 Dose: 50 mg - Labs Labs: 05/30/18 04:55 05/30/18 04:55 PT 12.4 Seconds (9.8-13.1) 05/26/18 17:15 INR 1.1 05/26/18 17:15 - Extremities Exam Additional comments: RLE: Knee imm in place Dressings CDI sensation intact SP/DP/TN motor intact EHL/FHL/TA/G calves soft NT LLE: Knee imm in place Dressings CDI sensation intact SP/DP/TN motor intact EHL/FHL/TA/G calves soft NT Assessment and Plan (1) Rupture of left patellar tendon Assessment & Plan: POD#3 s/p b/l patella tendon repair -Strict knee immobilizer at all times -DVT ppx -PT/OT -orthopedically stable for d/c to rehab -above d/w Dr. Sorto in agreement Status: Acute (2) Rupture of right patellar tendon Status: Acute
--- NOTE | 2018-05-30 13:15 | PN ---
DATE: 05/30/2018 SUBJECTIVE: The patient denies chest pain. PHYSICAL EXAMINATION: VITAL SIGNS: Blood pressure 125/78, heart rate 98, temperature 98.3, and respirations 20. HEENT: Normocephalic. CHEST: Clear. HEART: S1 and S2 regular. EXTREMITIES: No edema. LABORATORY DATA: Today's hemoglobin and hematocrit 12.7 and 38.6. White count 11.1, and platelet count 147,000. Today's SMA-7: Sodium 136, potassium 4.2, chloride 97, CO2 of 33, glucose 128, BUN 32, and creatinine 1.1. Postoperative EKG revealed sinus tachycardia at the rate of 101. ASSESSMENT: 1. Status post bilateral patellar knee repair. 2. Hypertension. RECOMMENDATIONS: Continue clonidine 0.2 mg twice a day, Lovenox 40 mg subcutaneously once a day, and Norvasc 10 mg once a day. Jorge Gerber MD
--- NOTE | 2018-05-31 01:24 | CP.PCM.PN ---
Subjective - Date & Time of Evaluation Date of Evaluation: 05/30/18 Time of Evaluation: 13:15 Objective - Vital Signs/Intake and Output Vital Signs (last 24 hours): Temp Pulse Resp BP Pulse Ox 97.0 F L 91 H 18 153/79 H 96 05/30/18 23:59 05/30/18 23:59 05/30/18 23:59 05/30/18 23:59 05/30/18 23:59 - Medications Medications: Current Medications Acetaminophen (Tylenol 325mg Tab) 325 mg PO Q4 PRN PRN Reason: Pain, Mild (1-3) Amlodipine Besylate (Norvasc) 10 mg PO DAILY [facility] Last Admin: 05/30/18 08:16 Dose: 10 mg Clonidine HCl (Catapres) 0.2 mg PO BID [facility] Last Admin: 05/30/18 16:23 Dose: 0.2 mg Enoxaparin Sodium (Lovenox) 40 mg SC DAILY [facility]; Protocol Last Admin: 05/30/18 08:17 Dose: 40 mg Hydromorphone HCl (Dilaudid) 0.5 mg IVP Q4H PRN PRN Reason: Pain, severe (8-10) Oxycodone/Acetaminophen (Percocet 5/325 Mg Tab) 2 tab PO Q4 PRN PRN Reason: Pain, moderate (4-7) Stop: 05/31/18 11:29 Last Admin: 05/30/18 23:47 Dose: 2 tab Senna/Docusate Sodium (Senokot S 50 Mg-8.6 Mg) 2 tab PO 0900 [facility] Last Admin: 05/30/18 08:16 Dose: 2 tab Tramadol HCl (Ultram) 50 mg PO Q6 PRN PRN Reason: Pain, severe (8-10) Last Admin: 05/28/18 05:26 Dose: 50 mg - Labs Labs: 05/30/18 04:55 05/30/18 04:55 PT 12.4 Seconds (9.8-13.1) 05/26/18 17:15 INR 1.1 05/26/18 17:15 Assessment and Plan (1) Traumatic rupture of right patella Status: Acute (2) Patellar tendon rupture Status: Acute (3) Unable to ambulate Status: Acute (4) Hypertension Status: Acute (5) Morbid obesity Status: Acute
[2018-05-31] MEDS: Oxycodone/Acetaminophen 5/325 mg Tab PO PRN ×4 (06:37→23:30)
[2018-05-31] MEDS: Enoxaparin 40 mg Syringe SC SCH (08:35)
[2018-05-31] MEDS: Docusate-Senna 50 mg-8.6 mg Tab PO SCH (08:36)
--- NOTE | 2018-05-31 09:07 | CP.PCM.PN ---
Subjective - Date & Time of Evaluation Date of Evaluation: 05/31/18 Time of Evaluation: 08:00 - Subjective Subjective: Patient seen and examined at bedside comfortable. Pain well controlled. Able to transfer with PT, has not yet WB with PT. No other complaints. Awaiting placement to rehab. Objective - Vital Signs/Intake and Output Vital Signs (last 24 hours): Temp Pulse Resp BP Pulse Ox 98.3 F 79 20 134/82 98 05/31/18 08:12 05/31/18 08:36 05/31/18 08:12 05/31/18 08:36 05/31/18 08:12 - Medications Medications: Current Medications Acetaminophen (Tylenol 325mg Tab) 325 mg PO Q4 PRN PRN Reason: Pain, Mild (1-3) Amlodipine Besylate (Norvasc) 10 mg PO DAILY [facility] Last Admin: 05/31/18 08:36 Dose: 10 mg Clonidine HCl (Catapres) 0.2 mg PO BID [facility] Last Admin: 05/31/18 08:36 Dose: 0.2 mg Hydromorphone HCl (Dilaudid) 0.5 mg IVP Q4H PRN PRN Reason: Pain, severe (8-10) Oxycodone/Acetaminophen (Percocet 5/325 Mg Tab) 2 tab PO Q4 PRN PRN Reason: Pain, moderate (4-7) Stop: 05/31/18 11:29 Last Admin: 05/31/18 06:37 Dose: 2 tab Senna/Docusate Sodium (Senokot S 50 Mg-8.6 Mg) 2 tab PO 0900 [facility] Last Admin: 05/31/18 08:36 Dose: 2 tab - Labs Labs: 05/30/18 04:55 05/30/18 04:55 PT 12.4 Seconds (9.8-13.1) 05/26/18 17:15 INR 1.1 05/26/18 17:15 - Extremities Exam Additional comments: RLE: Knee imm in place Dressings CDI sensation intact SP/DP/TN motor intact EHL/FHL/TA/G calves soft NT LLE: Knee imm in place Dressings CDI sensation intact SP/DP/TN motor intact EHL/FHL/TA/G calves soft NT Assessment and Plan (1) Rupture of left patellar tendon Assessment & Plan: POD#4 s/p b/l patella tendon repair -Strict knee immobilizer at all times -DVT ppx -PT/OT -orthopedically stable for d/c to rehab -above d/w Dr. Sorto in agreement Status: Acute (2) Rupture of right patellar tendon Status: Acute
--- NOTE | 2018-05-31 12:09 | PN ---
DATE: 05/31/2018 FOLLOWUP SUBJECTIVE: The patient denies chest pain or shortness of breath. PHYSICAL EXAMINATION: VITAL SIGNS: Blood pressure 134/82, heart rate 79, temperature 98.3, respirations 20. HEENT: Normocephalic. CHEST: Clear. HEART: S1 and S2, regular. EXTREMITIES: No edema. ASSESSMENT: 1. Bilateral patellar knee repair. 2. Hypertension, which is currently controlled. 3. Obesity. 4. Diabetes mellitus. RECOMMENDATIONS: Continue clonidine 0.2 mg twice a day and Norvasc 10 mg once a day, start aspirin at 81 mg once a day as there is no surgical contraindication. The patient will go to rehab today. Jorge Gerber MD
--- NOTE | 2018-05-31 22:34 | CP.PCM.PN ---
Subjective - Date & Time of Evaluation Date of Evaluation: 05/31/18 Time of Evaluation: 11:45 Objective - Vital Signs/Intake and Output Vital Signs (last 24 hours): Temp Pulse Resp BP Pulse Ox 97.7 F 82 17 127/76 95 05/31/18 19:13 05/31/18 19:13 05/31/18 19:13 05/31/18 19:13 05/31/18 19:13 - Medications Medications: Current Medications Acetaminophen (Tylenol 325mg Tab) 325 mg PO Q4 PRN PRN Reason: Pain, Mild (1-3) Amlodipine Besylate (Norvasc) 10 mg PO DAILY [facility] Last Admin: 05/31/18 08:36 Dose: 10 mg Clonidine HCl (Catapres) 0.2 mg PO BID [facility] Last Admin: 05/31/18 16:19 Dose: 0.2 mg Enoxaparin Sodium (Lovenox) 40 mg SC DAILY [facility]; Protocol Hydromorphone HCl (Dilaudid) 0.5 mg IVP Q4H PRN PRN Reason: Pain, severe (8-10) Oxycodone/Acetaminophen (Percocet 5/325 Mg Tab) 2 tab PO Q4 PRN PRN Reason: Pain, moderate (4-7) Stop: 06/03/18 14:02 Last Admin: 05/31/18 18:46 Dose: 2 tab Senna/Docusate Sodium (Senokot S 50 Mg-8.6 Mg) 2 tab PO 0900 [facility] Last Admin: 05/31/18 08:36 Dose: 2 tab - Labs Labs: 05/30/18 04:55 05/30/18 04:55 PT 12.4 Seconds (9.8-13.1) 05/26/18 17:15 INR 1.1 05/26/18 17:15 Assessment and Plan (1) Traumatic rupture of right patella Status: Acute (2) Patellar tendon rupture Status: Acute (3) Unable to ambulate Status: Acute (4) Hypertension Status: Acute (5) Morbid obesity Status: Acute
[2018-06-01] MEDS: Oxycodone/Acetaminophen 5/325 mg Tab PO PRN ×3 (05:07→19:47)
[2018-06-01] MEDS: Docusate-Senna 50 mg-8.6 mg Tab PO SCH (08:39)
[2018-06-01] MEDS: Enoxaparin 40 mg Syringe SC SCH (09:05)
--- NOTE | 2018-06-01 11:06 | CP.PCM.PN ---
Subjective - Date & Time of Evaluation Date of Evaluation: 06/01/18 Time of Evaluation: 11:02 - Subjective Subjective: Patient states he is feeling better. THe pain and swelling in his knees is going down. Objective - Vital Signs/Intake and Output Vital Signs (last 24 hours): Temp Pulse Resp BP Pulse Ox 98.2 F 77 20 138/79 93 L 06/01/18 07:51 06/01/18 08:39 06/01/18 07:51 06/01/18 08:39 06/01/18 07:51 - Medications Medications: Current Medications Acetaminophen (Tylenol 325mg Tab) 325 mg PO Q4 PRN PRN Reason: Pain, Mild (1-3) Amlodipine Besylate (Norvasc) 10 mg PO DAILY REPLACED BY [facility] Last Admin: 06/01/18 08:39 Dose: 10 mg Clonidine HCl (Catapres) 0.2 mg PO BID REPLACED BY [facility] Last Admin: 06/01/18 08:39 Dose: 0.2 mg Enoxaparin Sodium (Lovenox) 40 mg SC DAILY REPLACED BY [facility]; Protocol Last Admin: 06/01/18 09:05 Dose: 40 mg Hydromorphone HCl (Dilaudid) 0.5 mg IVP Q4H PRN PRN Reason: Pain, severe (8-10) Oxycodone/Acetaminophen (Percocet 5/325 Mg Tab) 2 tab PO Q4 PRN PRN Reason: Pain, moderate (4-7) Stop: 06/03/18 14:02 Last Admin: 06/01/18 10:53 Dose: 2 tab Senna/Docusate Sodium (Senokot S 50 Mg-8.6 Mg) 2 tab PO 0900 REPLACED BY [facility] Last Admin: 06/01/18 08:39 Dose: 2 tab - Labs Labs: 05/30/18 04:55 05/30/18 04:55 PT 12.4 Seconds (9.8-13.1) 05/26/18 17:15 INR 1.1 05/26/18 17:15 - Extremities Exam Additional comments: B ankle/toes rom, sensation intact, +DP/PT pulses, calves soft NT neg homans, knee immobilizers intact, no erythema, incisions intact Assessment and Plan (1) Rupture of right patellar tendon Assessment & Plan: POD#5 s/p B patellar tendon repairs knee immobilizers at all times not to be removed, reinforced to patient will need VTE proph on d/c continue lovenox x 30 days minimum PT/OT d/c planning orthopedically stable for d/c f/u labs d/w Dr. Sorto, agrees with above Status: Acute (2) Rupture of left patellar tendon Status: Acute (3) Morbid obesity with BMI of 40.0-44.9, adult Status: Acute
--- NOTE | 2018-06-01 15:52 | PN ---
DATE: 06/01/2018 SUBJECTIVE: The patient denies any chest pain or shortness of breath. PHYSICAL EXAMINATION: VITAL SIGNS: Blood pressure 125/76, heart rate 91, temperature 98.5, and respirations 20. HEENT: Normocephalic. CHEST: Clear. HEART: S1 and S2, regular. ABDOMEN: Soft. EXTREMITIES: No pedal edema. ASSESSMENT: 1. Systemic hypertension. 2. Status post bilateral patella knee tear repair. 3. Moderate obesity. 4. Mild prerenal azotemia. RECOMMENDATIONS: Continue clonidine 0.2 mg twice a day, Lovenox 40 mg subcutaneously once a day, Norvasc 10 mg once a day. Obtain a BMP and CBC in a.m. Jorge Gerber MD
--- NOTE | 2018-06-01 22:41 | CP.PCM.PN ---
Subjective - Date & Time of Evaluation Date of Evaluation: 06/01/18 Time of Evaluation: 12:25 - Subjective Subjective: Seen and examined at the bedside. Physical therapist and occupational therapist at the bedside. Patient to be taken out of bed to chair. Pending insurance authorization to send the patient to acute rehab. Pain severe but tolerable a fter pain medication. Denies fever or chills. Objective - Vital Signs/Intake and Output Vital Signs (last 24 hours): Temp Pulse Resp BP Pulse Ox 98.8 F 78 17 135/73 98 06/01/18 19:50 06/01/18 19:50 06/01/18 19:50 06/01/18 19:50 06/01/18 19:50 - Medications Medications: Current Medications Acetaminophen (Tylenol 325mg Tab) 325 mg PO Q4 PRN PRN Reason: Pain, Mild (1-3) Amlodipine Besylate (Norvasc) 10 mg PO DAILY [facility] Last Admin: 06/01/18 08:39 Dose: 10 mg Clonidine HCl (Catapres) 0.2 mg PO BID [facility] Last Admin: 06/01/18 16:24 Dose: 0.2 mg Enoxaparin Sodium (Lovenox) 40 mg SC DAILY [facility]; Protocol Last Admin: 06/01/18 09:05 Dose: 40 mg Hydromorphone HCl (Dilaudid) 0.5 mg IVP Q4H PRN PRN Reason: Pain, severe (8-10) Oxycodone/Acetaminophen (Percocet 5/325 Mg Tab) 2 tab PO Q4 PRN PRN Reason: Pain, moderate (4-7) Stop: 06/03/18 14:02 Last Admin: 06/01/18 19:47 Dose: 2 tab Senna/Docusate Sodium (Senokot S 50 Mg-8.6 Mg) 2 tab PO 0900 [facility] Last Admin: 06/01/18 08:39 Dose: 2 tab - Labs Labs: 05/30/18 04:55 05/30/18 04:55 PT 12.4 Seconds (9.8-13.1) 05/26/18 17:15 INR 1.1 05/26/18 17:15 Assessment and Plan (1) Traumatic rupture of right patella Assessment & Plan: Status post repair Status: Acute (2) Patellar tendon rupture Status: Acute (3) Unable to ambulate Status: Acute (4) Hypertension Status: Acute (5) Morbid obesity Status: Acute - Assessment and Plan (Free Text) Plan: Continue current care Pain medication as needed Pending insurance authorization for placement to acute rehab.
[2018-06-02 07:17] LABS: MEAN CELL VOLUME 90.7 fl (80.0-94.0); MEAN CORPUSCULAR HEMOGLOBIN 30.6 pg (27.0-31.0); MEAN CORPUSCULAR HGB CONC 33.7 g/dL (33.0-37.0); RBC 4.24 Mil/uL (4.40-5.90); RED CELL DISTRIBUTION WIDTH 13.7 % (11.5-14.5); WHITE BLOOD COUNT 7.2 K/uL (4.8-10.8)
[2018-06-02 07:36] LABS: BLOOD UREA NITROGEN 16 mg/dl (9-20); CALCIUM 9.4 mg/dL (8.4-10.2); GFR NON-AFRICAN AMERICAN > 60
[2018-06-02] MEDS: Enoxaparin 40 mg Syringe SC SCH (10:45)
[2018-06-02] MEDS: Docusate-Senna 50 mg-8.6 mg Tab PO SCH (10:47)
--- NOTE | 2018-06-02 20:38 | PN ---
DATE: 06/02/2018 FOLLOWUP SUBJECTIVE: The patient denies any dizziness, chest pain, or shortness of breath. PHYSICAL EXAMINATION: VITAL SIGNS: Blood pressure 141/83, heart rate 94, temperature 98.5, respirations 18. HEENT: Normocephalic. CHEST: Clear. HEART: S1 and S2 are regular. EXTREMITIES: No pedal edema. LABORATORY DATA: Hemoglobin and hematocrit 13 and 38.5, white count 7.2, platelet count 187,000. Today's SMA-7 is entirely within normal limits. ASSESSMENT: 1. Status post bilateral patellar knee repair, tendon repair. 2. Hypertension. 3. Obesity. 4. Improved prerenal azotemia. RECOMMENDATIONS: Continue clonidine 0.2 mg twice a day, Lovenox 40 mg subcutaneously once a day, Norvasc 10 mg once a day, Percocet two tablets every 4 hours p.r.n. Jorge Gerber MD
--- NOTE | 2018-06-03 01:28 | CP.PCM.PN ---
Subjective - Date & Time of Evaluation Date of Evaluation: 06/02/18 Time of Evaluation: 07:45 - Subjective Subjective: Reviewed chart. Pending placement in Acute Rehab. Objective - Vital Signs/Intake and Output Vital Signs (last 24 hours): Temp Pulse Resp BP Pulse Ox 98.1 F 88 18 154/80 H 97 06/02/18 23:42 06/02/18 23:42 06/02/18 23:42 06/02/18 23:42 06/02/18 23:42 - Medications Medications: Current Medications Acetaminophen (Tylenol 325mg Tab) 325 mg PO Q4 PRN PRN Reason: Pain, Mild (1-3) Amlodipine Besylate (Norvasc) 10 mg PO DAILY [facility] Last Admin: 06/02/18 10:45 Dose: 10 mg Clonidine HCl (Catapres) 0.2 mg PO BID [facility] Last Admin: 06/02/18 16:52 Dose: 0.2 mg Enoxaparin Sodium (Lovenox) 40 mg SC DAILY [facility]; Protocol Last Admin: 06/02/18 10:45 Dose: 40 mg Hydromorphone HCl (Dilaudid) 0.5 mg IVP Q4H PRN PRN Reason: Pain, severe (8-10) Oxycodone/Acetaminophen (Percocet 5/325 Mg Tab) 2 tab PO Q4 PRN PRN Reason: Pain, moderate (4-7) Stop: 06/03/18 14:02 Last Admin: 06/01/18 19:47 Dose: 2 tab Senna/Docusate Sodium (Senokot S 50 Mg-8.6 Mg) 2 tab PO 0900 [facility] Last Admin: 06/02/18 10:47 Dose: 2 tab - Labs Labs: 06/02/18 04:00 06/02/18 06:45 PT 12.4 Seconds (9.8-13.1) 05/26/18 17:15 INR 1.1 05/26/18 17:15 Assessment and Plan (1) Traumatic rupture of right patella Status: Acute (2) Patellar tendon rupture Status: Acute (3) Unable to ambulate Status: Acute (4) Hypertension Status: Acute (5) Morbid obesity Status: Acute - Assessment and Plan (Free Text) Plan: Pending Insurance Pre-Authorization for Acute Rehab Placement.
[2018-06-03] MEDS ORDERED: Oxycodone/Acetaminophen 5/325 mg Tab PO ONE (08:18)
[2018-06-03] MEDS: Enoxaparin 40 mg Syringe SC SCH (08:27)
[2018-06-03] MEDS: Oxycodone/Acetaminophen 5/325 mg Tab PO PRN ×2 (13:54→21:57)
[2018-06-03] MEDS: Docusate-Senna 50 mg-8.6 mg Tab PO SCH ×2 (13:56→14:14)
--- NOTE | 2018-06-03 20:15 | PN ---
DATE: 06/03/2018 SUBJECTIVE: The patient is comfortable in bed. Denies any chest pain. He has not had any physical therapy since yesterday. PHYSICAL EXAMINATION VITAL SIGNS: Blood pressure 146/82, heart rate 80, temperature 98.4, respirations 20. HEENT: Normocephalic. NECK: No JVD. CHEST: Clear. HEART: S1 and S2 regular. ABDOMEN: Soft. EXTREMITIES: No edema. ASSESSMENT: 1. Hypertension. 2. Status post bilateral patellar tendon repair. 3. Obesity. 4. Improved prerenal azotemia. RECOMMENDATIONS: Continue clonidine 0.2 mg twice a day, Lovenox 40 mg subcutaneously once a day, Norvasc 10 mg once a day and Percocet one tablet every 4 hours p.r.n. Jorge Gerber MD
--- NOTE | 2018-06-03 21:45 | CP.PCM.PN ---
Subjective - Date & Time of Evaluation Date of Evaluation: 06/03/18 Time of Evaluation: 18:40 Objective - Vital Signs/Intake and Output Vital Signs (last 24 hours): Temp Pulse Resp BP Pulse Ox 98.1 F 78 18 127/82 96 06/03/18 16:43 06/03/18 18:02 06/03/18 16:43 06/03/18 18:02 06/03/18 16:43 - Medications Medications: Current Medications Acetaminophen (Tylenol 325mg Tab) 325 mg PO Q4 PRN PRN Reason: Pain, Mild (1-3) Amlodipine Besylate (Norvasc) 10 mg PO DAILY [facility] Last Admin: 06/03/18 08:27 Dose: 10 mg Clonidine HCl (Catapres) 0.2 mg PO BID [facility] Last Admin: 06/03/18 18:02 Dose: 0.2 mg Enoxaparin Sodium (Lovenox) 40 mg SC DAILY [facility]; Protocol Last Admin: 06/03/18 08:27 Dose: 40 mg Hydromorphone HCl (Dilaudid) 0.5 mg IVP Q4H PRN PRN Reason: Pain, severe (8-10) Oxycodone/Acetaminophen (Percocet 5/325 Mg Tab) 1 tab PO Q4 PRN PRN Reason: Pain, moderate (4-7) Stop: 06/06/18 13:46 Last Admin: 06/03/18 13:54 Dose: 1 tab Senna/Docusate Sodium (Senokot S 50 Mg-8.6 Mg) 2 tab PO 0900 [facility] Last Admin: 06/03/18 14:14 Dose: Not Given - Labs Labs: 06/02/18 04:00 06/02/18 06:45 PT 12.4 Seconds (9.8-13.1) 05/26/18 17:15 INR 1.1 05/26/18 17:15 Assessment and Plan (1) Traumatic rupture of right patella Status: Acute (2) Patellar tendon rupture Status: Acute (3) Unable to ambulate Status: Acute (4) Hypertension Status: Acute (5) Morbid obesity Status: Acute
[2018-06-04] MEDS: Oxycodone/Acetaminophen 5/325 mg Tab PO PRN ×3 (02:40→11:38)
[2018-06-04] MEDS ORDERED: Enoxaparin 40 mg Syringe SC SCH (09:00)
[2018-06-04 09:09] VITALS: BP 149/89; PULSE 81; RESP 20; TEMP 97.5; O2SAT 95
--- NOTE | 2018-06-04 09:15 | CP.PCM.PN ---
Subjective - Date & Time of Evaluation Date of Evaluation: 06/04/18 Time of Evaluation: 08:00 - Subjective Subjective: Patient seen and examined at bedside comfortable. Pain well controlled. Reports doing minimal with PT, unable to ambulate as of yet. No acute events over weekend. Objective - Vital Signs/Intake and Output Vital Signs (last 24 hours): Temp Pulse Resp BP Pulse Ox 97.5 F L 81 20 149/89 95 06/04/18 09:08 06/04/18 09:08 06/04/18 09:08 06/04/18 09:08 06/04/18 09:08 - Medications Medications: Current Medications Acetaminophen (Tylenol 325mg Tab) 325 mg PO Q4 PRN PRN Reason: Pain, Mild (1-3) Amlodipine Besylate (Norvasc) 10 mg PO DAILY [facility] Last Admin: 06/03/18 08:27 Dose: 10 mg Clonidine HCl (Catapres) 0.2 mg PO BID [facility] Last Admin: 06/03/18 18:02 Dose: 0.2 mg Oxycodone/Acetaminophen (Percocet 5/325 Mg Tab) 1 tab PO Q4 PRN PRN Reason: Pain, moderate (4-7) Stop: 06/06/18 13:46 Last Admin: 06/04/18 06:48 Dose: 1 tab Senna/Docusate Sodium (Senokot S 50 Mg-8.6 Mg) 2 tab PO 0900 [facility] Last Admin: 06/03/18 14:14 Dose: Not Given - Labs Labs: 06/02/18 04:00 06/02/18 06:45 PT 12.4 Seconds (9.8-13.1) 05/26/18 17:15 INR 1.1 05/26/18 17:15 - Extremities Exam Additional comments: RLE: Knee imm in place Dressings CDI sensation intact SP/DP/TN motor intact EHL/FHL/TA/G calves soft NT LLE: Knee imm in place Dressings CDI sensation intact SP/DP/TN motor intact EHL/FHL/TA/G calves soft NT Assessment and Plan (1) Rupture of left patellar tendon Assessment & Plan: POD#8 s/p b/l patella tendon repair -Strict knee immobilizer at all times -DVT ppx -PT/OT -orthopedically stable for d/c to rehab -above d/w Dr. Sorto in agreement Status: Acute (2) Rupture of right patellar tendon Status: Acute
[2018-06-04] MEDS: Enoxaparin 40 mg Syringe SC SCH (09:19)
[2018-06-04] MEDS: Docusate-Senna 50 mg-8.6 mg Tab PO SCH (09:24)
--- NOTE | 2018-06-04 22:58 | CP.PCM.DIS ---
Provider - Provider Date of Admission: 05/25/18 23:11 Attending physician: Raymundo Taylor MD Consults: 05/25/18 23:47 Orthopedic Consult Stat Comment: Consulting Provider: Lorri Sorto Consulting Physician: Lorri Sorto Reason for Consult: bilateral knee injuries and effusions 05/26/18 15:44 Cardiology Consult Routine Comment: Consulting Provider: Jorge Gerber Consulting Physician: Jorge Gerber Reason for Consult: cardiac clearance 05/28/18 11:30 Case Management Referral Routine Comment: Physician Instructions: Reason For Exam: rehab, ortho stable Reason for Referral: Discharge Planning Time Spent in preparation of Discharge (in minutes): 25 Diagnosis - Discharge Diagnosis (1) Traumatic rupture of right patella Status: Acute Priority: High (2) Patellar tendon rupture Status: Acute Priority: High (3) Unable to ambulate Status: Acute Priority: High (4) Hypertension Status: Acute Priority: Medium (5) Morbid obesity Status: Acute Priority: Medium Hospital Course - Lab Results Lab Results: Most Recent Lab Values WBC 7.2 K/uL (4.8-10.8) 06/02/18 04:00 RBC 4.24 Mil/uL (4.40-5.90) L 06/02/18 04:00 Hgb 13.0 g/dL (12.0-18.0) 06/02/18 04:00 Hct 38.5 % (35.0-51.0) 06/02/18 04:00 MCV 90.7 fl (80.0-94.0) 06/02/18 04:00 MCH 30.6 pg (27.0-31.0) 06/02/18 04:00 MCHC 33.7 g/dL (33.0-37.0) 06/02/18 04:00 RDW 13.7 % (11.5-14.5) 06/02/18 04:00 Plt Count 187 K/uL (130-400) 06/02/18 04:00 MPV 11.1 fl (7.2-11.7) 05/25/18 23:31 Neut % (Auto) 76.2 % (50.0-75.0) H 05/25/18 23:31 Lymph % (Auto) 15.5 % (20.0-40.0) L 05/25/18 23:31 [place] % (Auto) 7.3 % (0.0-10.0) 05/25/18 23: Eos % (Auto) 0.3 % (0.0-4.0) 05/25/18 23:31 Baso % (Auto) 0.7 % (0.0-2.0) 05/25/18 23:31 Neut # (Auto) 6.4 K/uL (1.8-7.0) 05/25/18 23: Lymph # (Auto) 1.3 K/uL (1.0-4.3) 05/25/18 23: [place] # (Auto) 0.6 K/uL (0.0-0.8) 05/25/18 23: Eos # (Auto) 0.0 K/uL (0.0-0.7) 05/25/18 23: Baso # (Auto) 0.1 K/uL (0.0-0.2) 05/25/18 23: PT 12.4 Seconds (9.8-13.1) 05/26/18 17:15 INR 1.1 05/26/18 17:15 Sodium 140 mmol/l (132-148) 06/02/18 06:45 Potassium 4.2 MMOL/L (3.6-5.0) 06/02/18 06:45 Chloride 103 mmol/L (98-107) 06/02/18 06:45 Carbon Dioxide 30 mmol/L (22-30) 06/02/18 06:45 Anion Gap 11 (10-20) 06/02/18 06:45 BUN 16 mg/dl (9-20) 06/02/18 06:45 Creatinine 0.8 mg/dl (0.8-1.5) 06/02/18 06:45 Est GFR ( Amer) > 60 06/02/18 06:45 Est GFR (Non-Af Amer) > 60 06/02/18 06:45 Random Glucose 104 mg/dL (75-110) 06/02/18 06:45 Calcium 9.4 mg/dL (8.4-10.2) 06/02/18 06:45 Discharge Exam - Head Exam Head Exam: ATRAUMATIC, NORMAL INSPECTION, NORMOCEPHALIC Discharge Plan - Follow Up Plan Condition: FAIR Disposition: REHAB FACILITY/REHAB UNIT Instructions: How to Use Crutches, Internal Derangement of the Knee (DC), Knee Immobilizer (DC), Tendon Repair (DC) Additional Instructions: FOLLOW UP WITH THE ORTHOPEDIST IN 2-3 DAYS . Referrals: Jorge Gerber MD [Staff Provider] - [facility] - 05/28/18 (CALL TOMORROW MORNING TO ARRANGE FOLLOW UP APPOINTMENT)
== END 2018-06-04 14:54 | DRG 488 ==
LOC: H.ER 13:09 → H.ERHOLD 23:11 → H.MEDSURG1 05-26 01:13 → H.TEL 05-27 15:20 → H.MEDSURG1 06-02 12:43
PROVIDERS: ADMIT Internal Medicine; ATTEND Internal Medicine
PROC: 0QBF0ZZ Excision of Left Patella, Open Approach (ICD-10-PCS; 2018-05-27)
PROC: 0LQM0ZZ Repair Left Upper Leg Tendon, Open Approach (ICD-10-PCS; 2018-05-27)
PROC: 0LQL0ZZ Repair Right Upper Leg Tendon, Open Approach (ICD-10-PCS; 2018-05-27)
PROC: 0QBD0ZZ Excision of Right Patella, Open Approach (ICD-10-PCS; principal; 2018-05-27 11:00)
DX: S76.111A Strain of right quadriceps muscle, fascia and tendon, initial encounter (principal); Z68.41 Body mass index [BMI] 40.0-44.9, adult; S76.112A Strain of left quadriceps muscle, fascia and tendon, initial encounter; E66.01 Morbid (severe) obesity due to excess calories; I10 Essential (primary) hypertension; M25.462 Effusion, left knee; M25.461 Effusion, right knee; R79.89 Other specified abnormal findings of blood chemistry; W18.09XA Striking against other object with subsequent fall, initial encounter; Y99.0 Civilian activity done for income or pay; R00.0 Tachycardia, unspecified

== ENCOUNTER 2018-06-04 14:50 | Inpatient (IN) | payer OTHER, BC ==
[2018-06-04 15:07] VITALS: BMI 40.1
[2018-06-04] MEDS: Oxycodone/Acetaminophen 5/325 mg Tab PO PRN (19:48)
--- NOTE | 2018-06-04 19:49 | PN ---
DATE: 06/04/2018 SUBJECTIVE: The patient denies any chest pain or shortness of breath. PHYSICAL EXAMINATION: VITAL SIGNS: Blood pressure 149/89, heart rate 81, temperature 97.5, and respirations 20. HEENT: Normocephalic. CHEST: Clear. HEART: S1 and S2 regular. ABDOMEN: Soft. EXTREMITIES: No edema. ASSESSMENT: 1. Uncontrolled hypertension. 2. Status post repair of bilateral patellar knee fracture. 3. Obesity. RECOMMENDATIONS: Increase clonidine 2.2 mg t.i.d., continue subcutaneous Lovenox 40 mg once a day, and Norvasc 10 mg once a day. The patient will be transferred to rehab today. Jorge Gerber MD
[2018-06-05] MEDS: Oxycodone/Acetaminophen 5/325 mg Tab PO PRN ×3 (03:24→19:36)
[2018-06-05 06:17] LABS: HEMOGLOBIN 12.7 g/dL (12.0-18.0); MEAN CELL VOLUME 91.2 fl (80.0-94.0); MEAN CORPUSCULAR HEMOGLOBIN 30.1 pg (27.0-31.0); MEAN CORPUSCULAR HGB CONC 33.1 g/dL (33.0-37.0); RBC 4.23 Mil/uL (4.40-5.90); RED CELL DISTRIBUTION WIDTH 13.9 % (11.5-14.5); WHITE BLOOD COUNT 7.8 K/uL (4.8-10.8)
[2018-06-05 06:28] LABS: BLOOD UREA NITROGEN 17 mg/dl (9-20); CALCIUM 9.2 mg/dL (8.4-10.2); GFR NON-AFRICAN AMERICAN > 60
[2018-06-05] MEDS: Docusate-Senna 50 mg-8.6 mg Tab PO SCH (08:34)
[2018-06-05] MEDS: Enoxaparin 40 mg Syringe SC SCH (08:36)
--- NOTE | 2018-06-05 13:15 | PCM.PSYTMC ---
Acute Rehab Team Conference - - Vital Signs: Vital Signs (Last 8 Hours): Vital Signs 06/05/18 06/05/18 06/05/18 08:27 08:34 08:35 Temperature 98.3 F Pulse Rate 84 84 84 Respiratory 21 Rate Blood Pressure 142/89 142/89 142/89 O2 Sat by Pulse 100 Oximetry 06/05/18 10:08 Temperature 98.3 F Pulse Rate 84 Respiratory 21 Rate Blood Pressure 142/89 O2 Sat by Pulse Oximetry Pain: 0 - Precautions: Precautions: Fall Prevention - Medications/Other Issues: Comment: -Bilateral knee dressings - done by Guillermo AYALA. -Lovenox - DVT prevention. -Percocet & Dilaudid po PRN for pain - Consults: Comment: -Dr. Stratton- physiatry - Skin: Incision Site: Bilateral knees Dressing Status: Clean, Dry, Intact Incision Line Treatment: Covered with island dressing. - Toileting: Toileting: Maximal Assistance - Bladder Management: Bladder Pattern: Normal Voiding Method: Urinal Bladder Management: Minimal Assistance - Transfers: Transfers: Maximal Assistance - ADL's: ADL's: Minimal Assistance - Pain Management: Other Intervention:: Dilaudid and Percocet PRN - Patient/Family Teaching: Other Intervention:: Safety precautions; orientation to the unit; Medication; DVT prevention - Goals/Time Frame: Comment: Until next team conference or discharge - Provider: Registered Nurse:: Beth Wren Physical Therapy - Assessment/Plan Assessment: PT IE TO BE COMPLETED IN AFTERNOON - Provider Physical Therapist:: Tracy Maldonado License Number:: [id number] Occupational Therapy - ADL/IADL Self Feeding: Set-up Help Grooming: Set-up Help Bathing-Upper Ext: Set-up Help Bathing-Lower Ext: Minimal Assistance Dressing-Upper Ext: Minimal Assistance - Transfers Wheelchair to Bed Transfers: Minimal Assistance Speech Therapy - Consult Information Patient on Program: No Nutrition - Current Diet Current Diet/Supplement/Feedings: Regular diet - Appetite Percent Meal Consumed: 75-100% - Assessment/Goals/Time Frame Assessments/Goals/Time Frame: To follow as per nutrition protocol - Provider Provider: Charlene Hernandez Case Management - Psychosocial Assessment Support Systems: Patient's serena Feliciano [facility] [phone] Psychological Interventions/Needs: Patient is alert and oriented x3 and able to verbalize needs. Patient is cooperative and motivated for therapy Discharge Concerns: Patient with bilateral knee immobilizers. Patient/Family Meeting: CM met with patient and rehab team Intervention/Goal/Outcome: 1. Home with VNS and family support pending progres. 2. DME needs. 3. f/u appts. 4. emotional support. 5. caregiver training and e ducation. 6. patient to be reteamed next week for most appropriate discharge needs, support and plan. - Discharge Plan Discharge Plan: Home with services - Provider Provider: Mayo Miller License Number: [id number] Rehabilitation Plan - Treatment Plan Treatment Plan: Physical Therapy, Occupational Therapy, Dietary, Pain Management, Wound Care, Patient/Family Education - Discharge Plan Estimated Date of Discharge: 06/22/18 Discharge to: Home
--- NOTE | 2018-06-05 13:31 | CP.PCM.CON ---
History of Present Illness - History of Present Illness History of Present Illness: Dr. Stratton PMR consultation on Marc Mariee, born 1970 who has been admitted to the [facility] acute inpatient rehabilitation following a bilateral patella tendon tear and repair by Dr Sorto. Post op doing well and stable. Bilateral knee immobilizers. Can bear weight but no ROM. Review of Systems - Constitutional Constitutional: absent: Chills - EENT Eyes: absent: Blurred Vision, Change in Vision Ears: absent: Ear Discharge, Ear Pain Nose/Mouth/Throat: absent: Nasal Congestion - Cardiovascular Cardiovascular: absent: Chest Pain, Dyspnea on Exertion - Respiratory Respiratory: absent: Dyspnea, Hemoptysis - Gastrointestinal Gastrointestinal: absent: Belching, Constipation, Cramping - Musculoskeletal Musculoskeletal: absent: Back Pain - Integumentary Integumentary: absent: Bleeding Lesions - Neurological Neurological: Abnormal Gait. absent: Abnormal Movements, Dizziness - Psychiatric Psychiatric: absent: Confusion Past Patient History - Past Medical History & Family History Past Medical History?: Yes - Past Social History Smoking Status: Never Smoked Alcohol: None Drugs: Denies Home Situation {Lives}: Alone (one step) - CARDIAC Hx Hypertension: Yes (not on medication) - HEMATOLOGICAL/ONCOLOGICAL Hx AIDS: No Hx Human Immunodeficiency Virus (HIV): No - MUSCULOSKELETAL/RHEUMATOLOGICAL Hx Falls: Yes (after running away from the dog) - PSYCHIATRIC Hx Emotional Abuse: No Hx Physical Abuse: No Hx Substance Use: No - SURGICAL HISTORY Hx Surgeries: Yes Hx Herniorrhaphy: Yes (RIGHT INGUINAL HERNIA 2010) - ANESTHESIA Hx Anesthesia: Yes Hx Anesthesia Reactions: No Hx Malignant Hyperthermia: No Meds Allergies/Adverse Reactions: Allergies Allergy/AdvReac Type Severity Reaction Status Date / Time No Known Allergies Allergy Verified 05/25/18 13:36 - Medications Medications: Current Medications Acetaminophen (Tylenol 325mg Tab) 325 mg PO Q4 PRN PRN Reason: Pain, Mild (1-3) Amlodipine Besylate (Norvasc) 10 mg PO DAILY [facility] Last Admin: 06/05/18 08:34 Dose: 10 mg Clonidine HCl (Catapres) 0.2 mg PO Q12 [facility] Last Admin: 06/05/18 08:35 Dose: 0.2 mg Enoxaparin Sodium (Lovenox) 40 mg SC DAILY [facility]; Protocol Last Admin: 06/05/18 08:36 Dose: 40 mg Hydromorphone HCl (Dilaudid) 2 mg PO Q4 PRN PRN Reason: Pain, severe (8-10) Oxycodone/Acetaminophen (Percocet 5/325 Mg Tab) 1 tab PO Q4 PRN PRN Reason: Pain, moderate (4-7) Stop: 06/07/18 15:11 Last Admin: 06/05/18 10:34 Dose: 1 tab Senna/Docusate Sodium (Senokot S 50 Mg-8.6 Mg) 2 tab PO 0900 [facility] Last Admin: 06/05/18 08:34 Dose: 2 tab Physical Exam - Constitutional Appears: Well, Non-toxic, No Acute Distress - Head Exam Head Exam: ATRAUMATIC, NORMAL INSPECTION, NORMOCEPHALIC - Eye Exam Eye Exam: EOMI - ENT Exam ENT Exam: Mucous Membranes Moist - Respiratory Exam Respiratory Exam: NORMAL BREATHING PATTERN - Cardiovascular Exam Cardiovascular Exam: REGULAR RHYTHM - GI/Abdominal Exam GI & Abdominal Exam: absent: Distended, Firm - Neurological Exam Neurological exam: Alert, CN II-XII Intact, Oriented x3 - Psychiatric Exam Psychiatric exam: Normal Affect, Normal Mood - Skin Skin Exam: Warm Results - Vital Signs Recent Vital Signs: Last Vital Signs Temp 98.3 F 06/05/18 10:08 Pulse 84 06/05/18 10:08 Resp 21 06/05/18 10:08 BP 142/89 06/05/18 10:08 Pulse Ox 100 06/05/18 08:27 - Labs Result Diagrams: 06/05/18 05:25 06/05/18 05:25 Labs: Laboratory Results - last 24 hr 06/05/18 06/05/18 05:25 05:25 WBC 7.8 RBC 4.23 L Hgb 12.7 Hct 38.5 MCV 91.2 MCH 30.1 MCHC 33.1 RDW 13.9 Plt Count 219 Sodium 139 Potassium 4.1 Chloride 104 Carbon Dioxide 28 Anion Gap 11 BUN 17 Creatinine 0.8 Est GFR ( Amer) > 60 Est GFR (Non-Af Amer) > 60 Random Glucose 101 Calcium 9.2 Assessment & Plan - Assessment and Plan (Free Text) Assessment: PT/OT to continue to help increase functional independence Team conference for d/c planning Pain: controlled Vascular: no evidence of DVT GI: No evidence of constipation or diarrhea impairment code: 08.9 Patient is an excellent acute rehabilitation candidate and will have focused p ain management, wound care, PT, OT and recreational therapy to help facilitate a safe and appropriate d/c plan
--- NOTE | 2018-06-05 15:11 | PCM.OPOC ---
Physiatry Overall Plan of Care - Overall Plan of Care Estimated Length of Stay in Weeks: 2 Rehab Impairment: Mobility, Gait, Balance, Coordination Etiologic Diagnosis: Other (bilateral patella tendon rupture and repair) - Anticipated Interventions Physical Therapy:: Yes Occupational Therapy:: Yes Speech Therapy:: No Recreational Therapy:: Yes - Therapy Goals Bed Mobility: Supervision Ambulation: Supervision Functional Positional Changes:: Supervision - Discharge Plan Discharge Destination: Home
[2018-06-06] MEDS: Oxycodone/Acetaminophen 5/325 mg Tab PO PRN ×4 (03:05→21:07)
[2018-06-06] MEDS: Enoxaparin 40 mg Syringe SC SCH (08:06)
[2018-06-06] MEDS: Docusate-Senna 50 mg-8.6 mg Tab PO SCH (08:07)
--- NOTE | 2018-06-06 19:18 | CP.PCM.PN ---
Subjective - Date & Time of Evaluation Date of Evaluation: 06/06/18 Time of Evaluation: 19:17 - Subjective Subjective: Patient seen in the room overjoyed with care and unexpected progress he did not think he would be making such improvements pain is controlled continue current care. Objective - Vital Signs/Intake and Output Vital Signs (last 24 hours): Temp Pulse Resp BP Pulse Ox 98.6 F 84 22 148/97 H 97 06/06/18 08:08 06/06/18 14:15 06/06/18 08:08 06/06/18 08:20 06/06/18 08:20 - Medications Medications: Current Medications Acetaminophen (Tylenol 325mg Tab) 325 mg PO Q4 PRN PRN Reason: Pain, Mild (1-3) Amlodipine Besylate (Norvasc) 10 mg PO DAILY [facility] Last Admin: 06/06/18 08:07 Dose: 10 mg Clonidine HCl (Catapres) 0.2 mg PO Q12 [facility] Last Admin: 06/06/18 08:06 Dose: 0.2 mg Enoxaparin Sodium (Lovenox) 40 mg SC DAILY [facility]; Protocol Last Admin: 06/06/18 08:06 Dose: 40 mg Hydromorphone HCl (Dilaudid) 2 mg PO Q4 PRN PRN Reason: Pain, severe (8-10) Oxycodone/Acetaminophen (Percocet 5/325 Mg Tab) 1 tab PO Q4 PRN PRN Reason: Pain, moderate (4-7) Stop: 06/07/18 15:11 Last Admin: 06/06/18 15:13 Dose: 1 tab Senna/Docusate Sodium (Senokot S 50 Mg-8.6 Mg) 2 tab PO 0900 [facility] Last Admin: 06/06/18 08:07 Dose: 2 tab - Labs Labs: 06/05/18 05:25 06/05/18 05:25
--- NOTE | 2018-06-06 22:29 | CP.PCM.HP ---
History of Present Illness - History of Present Illness History of Present Illness: CC: Status post bilateral patellar tendon repair, and immobilization History of present illness A 48 year old male with HX of Essential HTN presented to the ER for evaluation of bilateral knee pain with right worse than left knee after a mechanical fall. In the ER, patient was found to have bilateral patellar tendon rupture, and sta tus post repair today day #8. Patient continued to complain pain 6-7/10 which is relieved by pain medication. Denies fever or chills. + Immobilization to bilateral knee. Patient is admitted to acute rehab for training range of movement, ambulation, negotiating stairs and halfway services for wound care. Present on Admission - Present on Admission Any Indicators Present on Admission: No Review of Systems - Review of Systems Review of Systems: As per HPI Past Patient History - Past Medical History & Family History Past Medical History?: Yes Past Family History: Reviewed and not pertinent - Past Social History Smoking Status: Never Smoked Alcohol: None Drugs: Denies Home Situation {Lives}: Alone (one step) - CARDIAC Hx Hypertension: Yes (not on medication) - HEMATOLOGICAL/ONCOLOGICAL Hx AIDS: No Hx Human Immunodeficiency Virus (HIV): No - MUSCULOSKELETAL/RHEUMATOLOGICAL Hx Falls: Yes (after running away from the dog) - PSYCHIATRIC Hx Emotional Abuse: No Hx Physical Abuse: No Hx Substance Use: No - SURGICAL HISTORY Hx Surgeries: Yes Hx Herniorrhaphy: Yes (RIGHT INGUINAL HERNIA 2010) Hx Musculoskeletal Surgery: Yes (Bilateral patellar tendon repair) - ANESTHESIA Hx Anesthesia: Yes Hx Anesthesia Reactions: No Hx Malignant Hyperthermia: No Meds Allergies/Adverse Reactions: Allergies Allergy/AdvReac Type Severity Reaction Status Date / Time No Known Allergies Allergy Verified 05/25/18 13:36 Physical Exam - Constitutional Appears: Well, No Acute Distress - Head Exam Head Exam: ATRAUMATIC, NORMAL INSPECTION, NORMOCEPHALIC - Eye Exam Eye Exam: EOMI, Normal appearance, PERRL Pupil Exam: NORMAL ACCOMODATION, PERRL - ENT Exam ENT Exam: Mucous Membranes Moist, Normal Exam - Neck Exam Neck exam: Positive for: Normal Inspection - Respiratory Exam Respiratory Exam: Clear to Auscultation Bilateral, NORMAL BREATHING PATTERN - Cardiovascular Exam Cardiovascular Exam: REGULAR RHYTHM, +S1, +S2 - GI/Abdominal Exam GI & Abdominal Exam: Normal Bowel Sounds, Soft. absent: Tenderness - Exam Exam: NORMAL INSPECTION - Extremities Exam Extremities exam: Positive for: normal capillary refill, pedal pulses present. Negative for: pedal edema Additional comments: Bilateral knee immobilized with splinting. Range of movement limited - Back Exam Back exam: FULL ROM, NORMAL INSPECTION - Neurological Exam Neurological exam: Alert, CN II-XII Intact, Normal Gait, Oriented x3, Reflexes Normal - Psychiatric Exam Psychiatric exam: Normal Affect, Normal Mood - Skin Skin Exam: Dry, Intact, Normal Color, Warm Results - Vital Signs Recent Vital Signs: Last Vital Signs Temp 98.2 F 06/06/18 19:47 Pulse 78 06/06/18 21:06 Resp 20 06/06/18 19:47 BP 140/68 06/06/18 21:06 Pulse Ox 98 06/06/18 19:47 - Labs Result Diagrams: 06/05/18 05:25 06/05/18 05:25 Assessment & Plan (1) Knee injuries Status: Acute Priority: High (2) Unable to ambulate Status: Acute Priority: High (3) Patellar tendon rupture Assessment and Plan: S/P Repair Day#8 Status: Acute Priority: High (4) High blood pressure Status: Acute Priority: Low (5) Morbid obesity with BMI of 40.0-44.9, adult Status: Acute Priority: Medium - Assessment and Plan (Free Text) Plan: Continue pain medication as needed Lovenox 40 mg subcu daily for DVT prophylaxis 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
--- NOTE | 2018-06-06 22:30 | CP.PCM.PN ---
Subjective - Date & Time of Evaluation Date of Evaluation: 06/06/18 Time of Evaluation: 13:05 Objective - Vital Signs/Intake and Output Vital Signs (last 24 hours): Temp Pulse Resp BP Pulse Ox 98.2 F 78 20 140/68 98 06/06/18 19:47 06/06/18 21:06 06/06/18 19:47 06/06/18 21:06 06/06/18 19:47 - Medications Medications: Current Medications Acetaminophen (Tylenol 325mg Tab) 325 mg PO Q4 PRN PRN Reason: Pain, Mild (1-3) Amlodipine Besylate (Norvasc) 10 mg PO DAILY [facility] Last Admin: 06/06/18 08:07 Dose: 10 mg Clonidine HCl (Catapres) 0.2 mg PO Q12 [facility] Last Admin: 06/06/18 21:06 Dose: 0.2 mg Enoxaparin Sodium (Lovenox) 40 mg SC DAILY [facility]; Protocol Last Admin: 06/06/18 08:06 Dose: 40 mg Hydromorphone HCl (Dilaudid) 2 mg PO Q4 PRN PRN Reason: Pain, severe (8-10) Oxycodone/Acetaminophen (Percocet 5/325 Mg Tab) 1 tab PO Q4 PRN PRN Reason: Pain, moderate (4-7) Stop: 06/07/18 15:11 Last Admin: 06/06/18 21:07 Dose: 1 tab Senna/Docusate Sodium (Senokot S 50 Mg-8.6 Mg) 2 tab PO 0900 [facility] Last Admin: 06/06/18 08:07 Dose: 2 tab - Labs Labs: 06/05/18 05:25 06/05/18 05:25
[2018-06-07] MEDS: Oxycodone/Acetaminophen 5/325 mg Tab PO PRN ×2 (01:35→05:54)
[2018-06-07] MEDS: Enoxaparin 40 mg Syringe SC SCH (08:36)
[2018-06-07] MEDS: Docusate-Senna 50 mg-8.6 mg Tab PO SCH (08:37)
[2018-06-07] MEDS ORDERED: Oxycodone/Acetaminophen 5/325 mg Tab PO PRN (11:35)
--- NOTE | 2018-06-07 21:36 | CP.PCM.PN ---
Subjective - Date & Time of Evaluation Date of Evaluation: 06/07/18 Time of Evaluation: 14:00 - Subjective Subjective: Patient seen and examined at bedside comfortable. Pain much improved. Tolerating PT well and able to ambulate with walker down hallway. No other complaints. Objective - Vital Signs/Intake and Output Vital Signs (last 24 hours): Temp Pulse Resp BP Pulse Ox 97.7 F 85 20 152/85 H 96 06/07/18 19:54 06/07/18 19:54 06/07/18 19:54 06/07/18 19:54 06/07/18 19:54 - Medications Medications: Current Medications Acetaminophen (Tylenol 325mg Tab) 325 mg PO Q4 PRN PRN Reason: Pain, Mild (1-3) Amlodipine Besylate (Norvasc) 10 mg PO DAILY [facility] Last Admin: 06/07/18 08:36 Dose: 10 mg Aspirin (Aspirin) 325 mg PO BID [facility] Last Admin: 06/07/18 16:38 Dose: 325 mg Clonidine HCl (Catapres) 0.2 mg PO Q12 [facility] Last Admin: 06/07/18 08:36 Dose: 0.2 mg Hydromorphone HCl (Dilaudid) 2 mg PO Q4 PRN PRN Reason: Pain, severe (8-10) Oxycodone/Acetaminophen (Percocet 5/325 Mg Tab) 1 tab PO Q4 PRN PRN Reason: Pain, moderate (4-7) Stop: 06/10/18 14:54 Senna/Docusate Sodium (Senokot S 50 Mg-8.6 Mg) 2 tab PO 0900 [facility] Last Admin: 06/07/18 08:37 Dose: 2 tab - Labs Labs: 06/05/18 05:25 06/05/18 05:25 - Extremities Exam Additional comments: RLE: Knee imm in place Dressings CDI incision CDI with antonino sensation intact SP/DP/TN motor intact EHL/FHL/TA/G calves soft NT LLE: Knee imm in place Dressings CDI incisions CDI with antonino sensation intact SP/DP/TN motor intact EHL/FHL/TA/G calves soft NT Assessment and Plan (1) Rupture of left patellar tendon Assessment & Plan: POD#11 s/p b/l patella tendon repair -Dressings changed -Strict knee immobilizer at all times -DVT ppx -PT/OT -orthopedically stable -above d/w Dr. Sorto in agreement Status: Acute (2) Rupture of right patellar tendon Status: Acute
[2018-06-08] MEDS: Oxycodone/Acetaminophen 5/325 mg Tab PO PRN (08:47)
[2018-06-08] MEDS: Docusate-Senna 50 mg-8.6 mg Tab PO SCH (08:48)
--- NOTE | 2018-06-08 10:22 | CP.PCM.PN ---
Subjective - Date & Time of Evaluation Date of Evaluation: 06/07/18 Objective - Vital Signs/Intake and Output Vital Signs (last 24 hours): Temp Pulse Resp BP Pulse Ox 97.2 F L 73 20 142/82 98 06/08/18 07:48 06/08/18 08:47 06/08/18 07:48 06/08/18 08:47 06/08/18 07:48 - Medications Medications: Current Medications Acetaminophen (Tylenol 325mg Tab) 325 mg PO Q4 PRN PRN Reason: Pain, Mild (1-3) Amlodipine Besylate (Norvasc) 10 mg PO DAILY [facility] Last Admin: 06/08/18 08:47 Dose: 10 mg Aspirin (Aspirin) 325 mg PO BID [facility] Last Admin: 06/08/18 08:46 Dose: 325 mg Clonidine HCl (Catapres) 0.2 mg PO Q12 [facility] Last Admin: 06/08/18 08:47 Dose: 0.2 mg Hydromorphone HCl (Dilaudid) 2 mg PO Q4 PRN PRN Reason: Pain, severe (8-10) Oxycodone/Acetaminophen (Percocet 5/325 Mg Tab) 1 tab PO Q4 PRN PRN Reason: Pain, moderate (4-7) Stop: 06/10/18 14:54 Last Admin: 06/08/18 08:47 Dose: 1 tab Senna/Docusate Sodium (Senokot S 50 Mg-8.6 Mg) 2 tab PO 0900 [facility] Last Admin: 06/08/18 08:48 Dose: 2 tab - Labs Labs: 06/05/18 05:25 06/05/18 05:25 Assessment and Plan (1) Knee injuries Status: Acute (2) Unable to ambulate Status: Acute (3) Patellar tendon rupture Status: Acute (4) High blood pressure Status: Acute (5) Morbid obesity with BMI of 40.0-44.9, adult Status: Acute
--- NOTE | 2018-06-08 14:17 | CP.PCM.PN ---
Subjective - Date & Time of Evaluation Date of Evaluation: 06/08/18 Time of Evaluation: 14:16 - Subjective Subjective: Patient seen in the room very happy with continued progress able to bump a couple of steps can get up from long-seated position denies sob/cp continue current care Objective - Vital Signs/Intake and Output Vital Signs (last 24 hours): Temp Pulse Resp BP Pulse Ox 97.2 F L 73 20 142/82 98 06/08/18 07:48 06/08/18 08:47 06/08/18 07:48 06/08/18 08:47 06/08/18 07:48 - Medications Medications: Current Medications Acetaminophen (Tylenol 325mg Tab) 325 mg PO Q4 PRN PRN Reason: Pain, Mild (1-3) Amlodipine Besylate (Norvasc) 10 mg PO DAILY [facility] Last Admin: 06/08/18 08:47 Dose: 10 mg Aspirin (Aspirin) 325 mg PO BID [facility] Last Admin: 06/08/18 08:46 Dose: 325 mg Clonidine HCl (Catapres) 0.2 mg PO Q12 [facility] Last Admin: 06/08/18 08:47 Dose: 0.2 mg Hydromorphone HCl (Dilaudid) 2 mg PO Q4 PRN PRN Reason: Pain, severe (8-10) Oxycodone/Acetaminophen (Percocet 5/325 Mg Tab) 1 tab PO Q4 PRN PRN Reason: Pain, moderate (4-7) Stop: 06/10/18 14:54 Last Admin: 06/08/18 08:47 Dose: 1 tab Senna/Docusate Sodium (Senokot S 50 Mg-8.6 Mg) 2 tab PO 0900 [facility] Last Admin: 06/08/18 08:48 Dose: 2 tab - Labs Labs: 06/05/18 05:25 06/05/18 05:25
--- NOTE | 2018-06-08 23:04 | CP.PCM.PN ---
Subjective - Date & Time of Evaluation Date of Evaluation: 06/08/18 Objective - Vital Signs/Intake and Output Vital Signs (last 24 hours): Temp Pulse Resp BP Pulse Ox 98.1 F 79 20 146/74 100 06/08/18 19:47 06/08/18 21:25 06/08/18 19:47 06/08/18 21:25 06/08/18 19:47 - Medications Medications: Current Medications Acetaminophen (Tylenol 325mg Tab) 325 mg PO Q4 PRN PRN Reason: Pain, Mild (1-3) Amlodipine Besylate (Norvasc) 10 mg PO DAILY [facility] Last Admin: 06/08/18 08:47 Dose: 10 mg Aspirin (Aspirin) 325 mg PO BID [facility] Last Admin: 06/08/18 16:49 Dose: 325 mg Clonidine HCl (Catapres) 0.2 mg PO Q12 [facility] Last Admin: 06/08/18 21:25 Dose: 0.2 mg Hydromorphone HCl (Dilaudid) 2 mg PO Q4 PRN PRN Reason: Pain, severe (8-10) Oxycodone/Acetaminophen (Percocet 5/325 Mg Tab) 1 tab PO Q4 PRN PRN Reason: Pain, moderate (4-7) Stop: 06/10/18 14:54 Last Admin: 06/08/18 08:47 Dose: 1 tab Senna/Docusate Sodium (Senokot S 50 Mg-8.6 Mg) 2 tab PO 0900 [facility] Last Admin: 06/08/18 08:48 Dose: 2 tab - Labs Labs: 06/05/18 05:25 06/05/18 05:25 Assessment and Plan (1) Knee injuries Status: Acute (2) Unable to ambulate Status: Acute (3) Patellar tendon rupture Status: Acute (4) High blood pressure Status: Acute (5) Morbid obesity with BMI of 40.0-44.9, adult Status: Acute
[2018-06-09] MEDS: Docusate-Senna 50 mg-8.6 mg Tab PO SCH (08:13)
[2018-06-09] MEDS: Oxycodone/Acetaminophen 5/325 mg Tab PO PRN (08:17)
--- NOTE | 2018-06-10 00:48 | CP.PCM.PN ---
Subjective - Date & Time of Evaluation Date of Evaluation: 06/09/18 Objective - Vital Signs/Intake and Output Vital Signs (last 24 hours): Temp Pulse Resp BP Pulse Ox 98.2 F 81 20 144/75 97 06/09/18 20:57 06/09/18 20:57 06/09/18 20:57 06/09/18 20:57 06/09/18 20:57 - Medications Medications: Current Medications Acetaminophen (Tylenol 325mg Tab) 325 mg PO Q4 PRN PRN Reason: Pain, Mild (1-3) Amlodipine Besylate (Norvasc) 10 mg PO DAILY [facility] Last Admin: 06/09/18 08:12 Dose: 10 mg Aspirin (Aspirin) 325 mg PO BID [facility] Last Admin: 06/09/18 16:52 Dose: 325 mg Clonidine HCl (Catapres) 0.2 mg PO Q12 [facility] Last Admin: 06/09/18 20:39 Dose: 0.2 mg Hydromorphone HCl (Dilaudid) 2 mg PO Q4 PRN PRN Reason: Pain, severe (8-10) Oxycodone/Acetaminophen (Percocet 5/325 Mg Tab) 1 tab PO Q4 PRN PRN Reason: Pain, moderate (4-7) Stop: 06/10/18 14:54 Last Admin: 06/09/18 08:17 Dose: 1 tab Senna/Docusate Sodium (Senokot S 50 Mg-8.6 Mg) 2 tab PO 0900 [facility] Last Admin: 06/09/18 08:13 Dose: 2 tab - Labs Labs: 06/05/18 05:25 06/05/18 05:25 Assessment and Plan (1) Knee injuries Status: Acute (2) Unable to ambulate Status: Acute (3) Patellar tendon rupture Status: Acute (4) High blood pressure Status: Acute (5) Morbid obesity with BMI of 40.0-44.9, adult Status: Acute
[2018-06-10] MEDS: Docusate-Senna 50 mg-8.6 mg Tab PO SCH (08:40)
--- NOTE | 2018-06-10 10:47 | CP.PCM.PN ---
Subjective - Date & Time of Evaluation Date of Evaluation: 06/09/18 Time of Evaluation: 08:30 - Subjective Subjective: no acute complaints at present, Objective - Vital Signs/Intake and Output Vital Signs (last 24 hours): Temp Pulse Resp BP Pulse Ox 97.7 F 80 20 140/94 H 98 06/10/18 08:10 06/10/18 08:41 06/10/18 08:10 06/10/18 08:41 06/10/18 08:10 - Medications Medications: Current Medications Acetaminophen (Tylenol 325mg Tab) 325 mg PO Q4 PRN PRN Reason: Pain, Mild (1-3) Amlodipine Besylate (Norvasc) 10 mg PO DAILY [facility] Last Admin: 06/10/18 08:41 Dose: 10 mg Aspirin (Aspirin) 325 mg PO BID [facility] Last Admin: 06/10/18 08:40 Dose: 325 mg Clonidine HCl (Catapres) 0.2 mg PO Q12 [facility] Last Admin: 06/10/18 08:41 Dose: 0.2 mg Hydromorphone HCl (Dilaudid) 2 mg PO Q4 PRN PRN Reason: Pain, severe (8-10) Oxycodone/Acetaminophen (Percocet 5/325 Mg Tab) 1 tab PO Q4 PRN PRN Reason: Pain, moderate (4-7) Stop: 06/10/18 14:54 Last Admin: 06/09/18 08:17 Dose: 1 tab Senna/Docusate Sodium (Senokot S 50 Mg-8.6 Mg) 2 tab PO 0900 [facility] Last Admin: 06/10/18 08:40 Dose: 2 tab - Labs Labs: 06/05/18 05:25 06/05/18 05:25 - Constitutional Appears: Well - Head Exam Head Exam: ATRAUMATIC, NORMAL INSPECTION, NORMOCEPHALIC - Eye Exam Eye Exam: EOMI, Normal appearance Pupil Exam: NORMAL ACCOMODATION, PERRL - ENT Exam ENT Exam: Mucous Membranes Moist, Normal Exam - Neck Exam Neck Exam: Normal Inspection - Respiratory Exam Respiratory Exam: Clear to Ausculation Bilateral - Cardiovascular Exam Cardiovascular Exam: REGULAR RHYTHM - GI/Abdominal Exam GI & Abdominal Exam: Normal Bowel Sounds - Rectal Exam Rectal Exam: NORMAL INSPECTION - Exam External exam: NORMAL EXTERNAL EXAM - Extremities Exam Extremities Exam: Normal Inspection - Back Exam Back Exam: NORMAL INSPECTION - Neurological Exam Neurological Exam: Alert, Awake - Psychiatric Exam Psychiatric exam: Normal Affect - Skin Skin Exam: Normal Color Assessment and Plan (1) Gastroenteritis Status: Acute (2) High blood pressure Status: Acute (3) Hypertension Status: Acute (4) Knee injuries Assessment & Plan: Bilteral knee surgery, to continue with physical, occupational therapy, monitor skin and pain treatment. Covering For Dr Stratton Status: Acute (5) Morbid obesity Status: Acute
[2018-06-11] MEDS: Oxycodone/Acetaminophen 5/325 mg Tab PO PRN (08:00)
[2018-06-11] MEDS: Docusate-Senna 50 mg-8.6 mg Tab PO SCH (08:02)
--- NOTE | 2018-06-11 13:10 | CP.PCM.PN ---
Subjective - Date & Time of Evaluation Date of Evaluation: 06/11/18 Time of Evaluation: 13:08 - Subjective Subjective: Patient seen and examined at bedside comfortable. No complaints of pain. Doing very well with PT. No new complaints. Objective - Vital Signs/Intake and Output Vital Signs (last 24 hours): Temp Pulse Resp BP Pulse Ox 97.7 F 78 18 145/91 H 97 06/11/18 08:49 06/11/18 08:49 06/11/18 08:49 06/11/18 08:49 06/11/18 08:49 - Medications Medications: Current Medications Acetaminophen (Tylenol 325mg Tab) 325 mg PO Q4 PRN PRN Reason: Pain, Mild (1-3) Amlodipine Besylate (Norvasc) 10 mg PO DAILY [facility] Last Admin: 06/11/18 08:01 Dose: 10 mg Aspirin (Aspirin) 325 mg PO BID [facility] Last Admin: 06/11/18 08:02 Dose: 325 mg Clonidine HCl (Catapres) 0.2 mg PO Q12 [facility] Last Admin: 06/11/18 08:01 Dose: 0.2 mg Hydromorphone HCl (Dilaudid) 2 mg PO Q4 PRN PRN Reason: Pain, severe (8-10) Oxycodone/Acetaminophen (Percocet 5/325 Mg Tab) 1 tab PO Q4 PRN PRN Reason: Pain, moderate (4-7) Stop: 06/13/18 15:43 Last Admin: 06/11/18 08:00 Dose: 1 tab Senna/Docusate Sodium (Senokot S 50 Mg-8.6 Mg) 2 tab PO 0900 [facility] Last Admin: 06/11/18 08:02 Dose: 2 tab - Labs Labs: 06/05/18 05:25 06/05/18 05:25 - Extremities Exam Additional comments: RLE: Knee imm in place Dressings CDI incision CDI with antonino sensation intact SP/DP/TN motor intact EHL/FHL/TA/G calves soft NT LLE: Knee imm in place Dressings CDI incisions CDI with antonino sensation intact SP/DP/TN motor intact EHL/FHL/TA/G calves soft NT Assessment and Plan (1) Rupture of left patellar tendon Assessment & Plan: POD#15 s/p b/l patella tendon repair -Antonino removed, steri strips removed -Strict knee immobilizer at all times -DVT ppx -PT/OT -orthopedically stable for d/c home -above d/w Dr. Sorto in agreement Status: Acute (2) Rupture of right patellar tendon Status: Acute
--- NOTE | 2018-06-11 18:21 | CP.PCM.PN ---
Subjective - Date & Time of Evaluation Date of Evaluation: 06/11/18 Time of Evaluation: 18:20 - Subjective Subjective: Patient seen in the room is present shaving denies sob/cp very happy with progress antonino taken out today still no ROM about 3+ weeks team conf. tomorrow and he is getting confident that he can d/c home soon Objective - Vital Signs/Intake and Output Vital Signs (last 24 hours): Temp Pulse Resp BP Pulse Ox 97.7 F 78 18 145/91 H 97 06/11/18 08:49 06/11/18 08:49 06/11/18 08:49 06/11/18 08:49 06/11/18 08:49 - Medications Medications: Current Medications Acetaminophen (Tylenol 325mg Tab) 325 mg PO Q4 PRN PRN Reason: Pain, Mild (1-3) Amlodipine Besylate (Norvasc) 10 mg PO DAILY [facility] Last Admin: 06/11/18 08:01 Dose: 10 mg Aspirin (Aspirin) 325 mg PO BID [facility] Last Admin: 06/11/18 16:32 Dose: 325 mg Clonidine HCl (Catapres) 0.2 mg PO Q12 [facility] Last Admin: 06/11/18 08:01 Dose: 0.2 mg Hydromorphone HCl (Dilaudid) 2 mg PO Q4 PRN PRN Reason: Pain, severe (8-10) Oxycodone/Acetaminophen (Percocet 5/325 Mg Tab) 1 tab PO Q4 PRN PRN Reason: Pain, moderate (4-7) Stop: 06/13/18 15:43 Last Admin: 06/11/18 08:00 Dose: 1 tab Senna/Docusate Sodium (Senokot S 50 Mg-8.6 Mg) 2 tab PO 0900 [facility] Last Admin: 06/11/18 08:02 Dose: 2 tab - Labs Labs: 06/05/18 05:25 06/05/18 05:25
[2018-06-12] MEDS: Docusate-Senna 50 mg-8.6 mg Tab PO SCH (08:11)
[2018-06-12] MEDS: Oxycodone/Acetaminophen 5/325 mg Tab PO PRN (09:03)
--- NOTE | 2018-06-12 13:11 | PCM.PSYTMC ---
Acute Rehab Team Conference - - Vital Signs: Vital Signs (Last 8 Hours): Vital Signs 06/12/18 06/12/18 06/12/18 07:38 08:10 08:11 Temperature 97.6 F 98.3 F Pulse Rate 70 78 76 Respiratory 20 19 Rate Blood Pressure 133/78 156/90 H 156/90 H O2 Sat by Pulse 96 Oximetry Pain: 0 - Precautions: Precautions: Fall Prevention - Medications/Other Issues: Comment: -Bilateral knee dressings - done by Guillermo AYALA. -Lovenox - DVT prevention. -Percocet & Dilaudid po PRN for pain - Consults: Comment: -Dr. Stratton- physiatry - Skin: Incision Site: Bilateral knees Dressing Status: Clean, Dry, Intact Incision Line Treatment: Covered with island dressing. - Toileting: Toileting: Modified Independent - Bladder Management: Bladder Pattern: Normal Voiding Method: Urinal Bladder Management: Minimal Assistance - Transfers: Transfers: Supervision - ADL's: ADL's: Minimal Assistance - Pain Management: Other Intervention:: Dilaudid and Percocet PRN - Patient/Family Teaching: Other Intervention:: re: pain management. - Goals/Time Frame: Comment: Until next team conference or discharge - Provider: Registered Nurse:: Addison Graham Physical Therapy - Bed Mobility Bed Mobility: Supervision Comment: Supine to sit on EOB with head of bed flat without use of bedrail with supervision. - Transfers Wheelchair to Mat: Supervision Sit to Stand: Supervision Comment: Sit to stand with RW and without an assistive device with supervision with bilateral LE KI's intact. - Ambulation Level of Assistance: Supervision Distance (ft.): 500 Assistive Devices: N/A Orthoses: Patient ambulates without an assistive device with bilateral LE KI's intact with slow gait, WBAT bilateral LE's x 500 feet x 1 time with supervision, increased lateral sway, no LOB noted. Patient ambulates with a RW x 500 feet with supervision. - Stair Negotiation Stairs: Level of Assistance: Supervision Number of Stairs: 12 Stairs: Assistive Devices: Left Handrail, Right Handrail Comment: Patient ascended and descended 2 steps x 6 times with bilateral LE KI's with step to pattern, ascended backwards and descended frontwards with supervision. - Standing Balance Static Stand: Supervision - Pain Pain (assessed during therapy session): 2 Alleviating Techniques: Medication Comment: Minimal complaints - Insight/Carryover Insight/Carryover: Good - Patient/Family Education Comment: Performed car transfers with supervision and VC's for safe technique. - Assessment/Plan Assessment: Patient has made significant progress during his rehab stay despite necessitating bilateral LE KI's at all times, motivated, minimal pain. - Goals Timeframe: 1 week Goals: 1. Independent HEP for improved ADL's. 2. Independent transfers from low surfaces. 3. Independent ambulation x 800 feet x 2 times. 4. Independent stair negotiation x 12 steps. - Provider Physical Therapist:: Angélica Marie License Number:: [id number] Occupational Therapy - Arousal/Attention/Orientation Level of Consciousness: Awake, Alert Patient Orientation: Person, Place, Time, Appropriate to Age, Appropriate to Situation - ADL/IADL Self Feeding: Independent Grooming: Set-up Help Bathing-Upper Ext: Set-up Help Bathing-Lower Ext: Moderate Assistance Dressing-Upper Ext: Set-up Help Dressing-Lower Ext: Contact Guard, Minimal Assistance Homemaking: Verbal Cues, Set-up Help, Minimal Assistance Comment: uses RW, needs intermittent rest breaks - Sitting Balance Static Sitting: Independent without upper extremity support Dynamic Sitting: Reaches across midline, Reaches out of base of support, Reaches within base of support - Transfers Wheelchair to Bed Transfers: Supervision, Verbal Cues, Set-up Help Toilet Transfers: Supervision, Verbal Cues, Set-up Help Comment: shower transfers: CG/CS - Wheelchair Management Level of Assistance: Independent Distance (ft.): 150 - Upper Extremity Status Right Upper Extremity Comment: AROM WNLs: 5/5 Left Upper Extremity Comment: AROM is WNLs: 5/5 - Pain Pain (assessed during therapy session): 2 Alleviating Techniques: Distraction Comment: L knee - Insight/Carryover Insight/Carryover: Good - Patient/Family Education Comment: -ongoing education for adls, transfer/mobility training uisng adap tive/compensatory strategies, proper devices/DMEs adhering to safety precautions. -pt/pt's educated on uses/applications of commode, transfer tub bench with back tool and die maker, sockaide/shoehorn & long shoe horn; additional training recommended to increase carryover and I. -B knee immobilizer at all times. -option for bathing: sponge bathing vs shower with B LES covered/sealed. -adl/rehab goals & plan of care. -safety, OOB activities - Assessment/Plan Assessment: Pt is 48 year old male with B tendon repair after fall. *Precautions: WBAT BLEs, fall precautions knee immobilizer at all times. 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 Pt will continue to benefit from skilled Occupational Therapy to maximize function in adls, transfers/mobility using adaptive strategies, + DME needs assessment, caregiver ed for safe transition home with services pending progress. Pt will likely need the following DMEs: 3 in one commode, transfer tub bench, hip kit, grab bars, & ambulatory device--to reassess needs as pt progresses. Pt continues to demonstrate significant improvements in self care, transfers/mobility and overall safety awareness. Pt will continue ongoing adl/transfer training with proper use of adaptive devices/DMES for safe completion of daily living tasks for safe transition home. Pt will also need to improve overall endurance/activity tolerance; pt fatigues easily needing frequent rest breaks. Pt encouraged to sit up in w/c during day. Pt's pain managed well thus pt now able to complete therapy task with increase safety & confidence. *Goal: Mod I for self care, transfers/mobility with assistive devices & caregiver to be I cueing, guarding and assisting pt as needed with daily living tasks adhering to precautions. - Goals Timeframe: 8 days Comment: -GROOMING(standing @ sink): Mod I. -UPPER BODY DRESSING: Mod I. - LOWER BODY DRESSING: Mod I. -TOILETING: Mod I. -LIGHT KITCHEN TASKS: Mod I. - GATHER/TRANSPORT ITEMS: Mod I. -BATHING: Supervision/setup seated intermittently(sponge); shower with min assist and verbal cues seated. -W/C PROPULSION/MANAGEMENT: 150 feet+ with Mod I, manage B brakes/legrests with Mod I - Provider Occupational Therapist:: Juli Nichols License Number: [id number] Speech Therapy - Consult Information Patient on Program: No Recreational Therapy - Participation Participation: Participates in Individual and/or Group Sessions, Monitors His/Her Own Leisure Time - Attendance Attendance: 3-5 times per week - Activities Leisure Activities: Cards and Games - Socialization Level of Socialization: Initiates/interacts freely with care givers and peer - Diversional Time Diversional Time: television, socialization, wii bowling - Assessment Assessment/Plan: Pt is agreeable to participate in either 1:1 recreation therapy sessions or independent leisure tasks. Pt has participated in wii bowling task and plays tasks on his phone or watches television during his free time. Pt receives daily room visits for socialization and encouragement to participate in sessions. Pt continues to present improved mood state and increase arousal as pt reported he is pleased with his progress throughout therapy sessions. Pt will continue to benefit from recreation therapy sessions for diversion and improve activity tolerance level. Problems Currently Limiting Participation: pain, anxiety, decrease activity tolerance level, decrease leisure awareness level Goals and Time Frame: Pt will be encouraged to participate in 1:1 and group recreation therapy sessions 3-5x week to improve arousal level, leisure awareness level, activity tolerance level, and decrease anxiety level by date of discharge. - Provider Therapist: Chyna Purvis Nutrition - Current Diet Current Diet/Supplement/Feedings: Regular diet - Appetite Percent Meal Consumed: 75-100% - Assessment/Goals/Time Frame Assessments/Goals/Time Frame: Pt at low nutritional risk. no goals. Follow-up due on 06/17/2018 - Provider Provider: Charlene Hernandez Case Management - Psychosocial Assessment Support Systems: Jodie Bello ([facility] [place]) [phone] Psychological Interventions/Needs: Patient is AAOx3 and abl to verbalize needs. Discharge Concerns: Patient has one step to enter his apartment. 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 Patient/Family Meeting: CM met with patient and rehab team. Intervention/Goal/Outcome: 1. Goal: Mod I 2. Plan: home with VNS vs outpatient PT/OT 3. schedule follow ups 4. discuss tentative discharge date with team 5. continued emotional support - Discharge Plan Discharge Plan: Home with significant other/family Home Services: [facility]? - Provider Provider: Danii Betancourt License Number: [id number] Rehabilitation Plan - Treatment Plan Treatment Plan: Physical Therapy, Occupational Therapy, Dietary, Patient/Family Education - Discharge Plan Estimated Date of Discharge: 06/15/18 Discharge to: Home
--- NOTE | 2018-06-12 13:42 | CP.PCM.PN ---
Subjective - Date & Time of Evaluation Date of Evaluation: 06/12/18 Time of Evaluation: 13:40 - Subjective Subjective: Patient seen in the room very motivated and continues to make progress aware of 06/15/18 d/c date he will follow up with surgeon in the next couple of weeks to determine length of time with the immobilizers initially no PT will be necessary pending the next step in recovery. Objective - Vital Signs/Intake and Output Vital Signs (last 24 hours): Temp Pulse Resp BP Pulse Ox 98.3 F 76 19 156/90 H 96 06/12/18 08:10 06/12/18 08:11 06/12/18 08:10 06/12/18 08:11 06/12/18 08:10 - Medications Medications: Current Medications Acetaminophen (Tylenol 325mg Tab) 325 mg PO Q4 PRN PRN Reason: Pain, Mild (1-3) Amlodipine Besylate (Norvasc) 10 mg PO DAILY [facility] Last Admin: 06/12/18 08:11 Dose: 10 mg Aspirin (Aspirin) 325 mg PO BID [facility] Last Admin: 06/12/18 08:12 Dose: 325 mg Clonidine HCl (Catapres) 0.2 mg PO Q12 [facility] Last Admin: 06/12/18 08:10 Dose: 0.2 mg Hydromorphone HCl (Dilaudid) 2 mg PO Q4 PRN PRN Reason: Pain, severe (8-10) Oxycodone/Acetaminophen (Percocet 5/325 Mg Tab) 1 tab PO Q4 PRN PRN Reason: Pain, moderate (4-7) Stop: 06/13/18 15:43 Last Admin: 06/12/18 09:03 Dose: 1 tab Senna/Docusate Sodium (Senokot S 50 Mg-8.6 Mg) 2 tab PO 0900 [facility] Last Admin: 06/12/18 08:11 Dose: 2 tab - Labs Labs: 06/05/18 05:25 06/05/18 05:25
--- NOTE | 2018-06-12 18:15 | CP.PCM.PN ---
Subjective - Date & Time of Evaluation Date of Evaluation: 06/12/18 Time of Evaluation: 16:55 Objective - Vital Signs/Intake and Output Vital Signs (last 24 hours): Temp Pulse Resp BP Pulse Ox 98.3 F 76 19 156/90 H 96 06/12/18 08:10 06/12/18 08:11 06/12/18 08:10 06/12/18 08:11 06/12/18 08:10 - Medications Medications: Current Medications Acetaminophen (Tylenol 325mg Tab) 325 mg PO Q4 PRN PRN Reason: Pain, Mild (1-3) Amlodipine Besylate (Norvasc) 10 mg PO DAILY [facility] Last Admin: 06/12/18 08:11 Dose: 10 mg Aspirin (Aspirin) 325 mg PO BID [facility] Last Admin: 06/12/18 17:14 Dose: 325 mg Clonidine HCl (Catapres) 0.2 mg PO Q12 [facility] Last Admin: 06/12/18 08:10 Dose: 0.2 mg Hydromorphone HCl (Dilaudid) 2 mg PO Q4 PRN PRN Reason: Pain, severe (8-10) Oxycodone/Acetaminophen (Percocet 5/325 Mg Tab) 1 tab PO Q4 PRN PRN Reason: Pain, moderate (4-7) Stop: 06/13/18 15:43 Last Admin: 06/12/18 09:03 Dose: 1 tab Senna/Docusate Sodium (Senokot S 50 Mg-8.6 Mg) 2 tab PO 0900 [facility] Last Admin: 06/12/18 08:11 Dose: 2 tab - Labs Labs: 06/05/18 05:25 06/05/18 05:25 Assessment and Plan (1) Knee injuries Status: Acute (2) Unable to ambulate Status: Acute (3) Patellar tendon rupture Status: Acute (4) High blood pressure Status: Acute (5) Morbid obesity with BMI of 40.0-44.9, adult Status: Acute
[2018-06-13] MEDS: Docusate-Senna 50 mg-8.6 mg Tab PO SCH (08:11)
[2018-06-13] MEDS ORDERED: Oxycodone/Acetaminophen 5/325 mg Tab PO PRN (17:02)
--- NOTE | 2018-06-13 17:09 | CP.PCM.PN ---
Subjective - Date & Time of Evaluation Date of Evaluation: 06/13/18 Time of Evaluation: 17:08 - Subjective Subjective: Patient seen in rec therapy playing wi bowling and doing quite well he is very appreciative to the staff and his progress and attention pain is well controlled continue current care d/c home 06/15/18 Objective - Vital Signs/Intake and Output Vital Signs (last 24 hours): Temp Pulse Resp BP Pulse Ox 97.8 F 75 22 145/78 100 06/13/18 08:05 06/13/18 08:10 06/13/18 08:05 06/13/18 08:10 06/13/18 08:05 - Medications Medications: Current Medications Acetaminophen (Tylenol 325mg Tab) 325 mg PO Q4 PRN PRN Reason: Pain, Mild (1-3) Amlodipine Besylate (Norvasc) 10 mg PO DAILY [facility] Last Admin: 06/13/18 08:09 Dose: 10 mg Aspirin (Aspirin) 325 mg PO BID [facility] Last Admin: 06/13/18 16:43 Dose: 325 mg Clonidine HCl (Catapres) 0.2 mg PO Q12 [facility] Last Admin: 06/13/18 08:10 Dose: 0.2 mg Hydromorphone HCl (Dilaudid) 2 mg PO Q4 PRN PRN Reason: Pain, severe (8-10) Oxycodone/Acetaminophen (Percocet 5/325 Mg Tab) 1 tab PO Q4 PRN PRN Reason: Pain, moderate (4-7) Stop: 06/16/18 17:03 Senna/Docusate Sodium (Senokot S 50 Mg-8.6 Mg) 2 tab PO 0900 [facility] Last Admin: 06/13/18 08:11 Dose: 2 tab - Labs Labs: 06/05/18 05:25 06/05/18 05:25
--- NOTE | 2018-06-13 21:40 | CP.PCM.PN ---
Subjective - Date & Time of Evaluation Date of Evaluation: 06/13/18 Objective - Vital Signs/Intake and Output Vital Signs (last 24 hours): Temp Pulse Resp BP Pulse Ox 97.8 F 77 22 133/70 100 06/13/18 08:05 06/13/18 20:55 06/13/18 08:05 06/13/18 20:55 06/13/18 08:05 - Medications Medications: Current Medications Acetaminophen (Tylenol 325mg Tab) 325 mg PO Q4 PRN PRN Reason: Pain, Mild (1-3) Amlodipine Besylate (Norvasc) 10 mg PO DAILY [facility] Last Admin: 06/13/18 08:09 Dose: 10 mg Aspirin (Aspirin) 325 mg PO BID [facility] Last Admin: 06/13/18 16:43 Dose: 325 mg Clonidine HCl (Catapres) 0.2 mg PO Q12 [facility] Last Admin: 06/13/18 20:55 Dose: 0.2 mg Hydromorphone HCl (Dilaudid) 2 mg PO Q4 PRN PRN Reason: Pain, severe (8-10) Oxycodone/Acetaminophen (Percocet 5/325 Mg Tab) 1 tab PO Q4 PRN PRN Reason: Pain, moderate (4-7) Stop: 06/16/18 17:03 Senna/Docusate Sodium (Senokot S 50 Mg-8.6 Mg) 2 tab PO 0900 [facility] Last Admin: 06/13/18 08:11 Dose: 2 tab - Labs Labs: 06/05/18 05:25 06/05/18 05:25 Assessment and Plan (1) Knee injuries Status: Acute (2) Unable to ambulate Status: Acute (3) Patellar tendon rupture Status: Acute (4) High blood pressure Status: Acute (5) Morbid obesity with BMI of 40.0-44.9, adult Status: Acute
[2018-06-14] MEDS: Docusate-Senna 50 mg-8.6 mg Tab PO SCH (08:23)
--- NOTE | 2018-06-14 22:22 | CP.PCM.PN ---
Subjective - Date & Time of Evaluation Date of Evaluation: 06/14/18 Time of Evaluation: 17:15 Objective - Vital Signs/Intake and Output Vital Signs (last 24 hours): Temp Pulse Resp BP Pulse Ox 97.9 F 79 20 144/77 99 06/14/18 20:14 06/14/18 21:27 06/14/18 20:14 06/14/18 21:27 06/14/18 20:14 - Medications Medications: Current Medications Acetaminophen (Tylenol 325mg Tab) 325 mg PO Q4 PRN PRN Reason: Pain, Mild (1-3) Amlodipine Besylate (Norvasc) 10 mg PO DAILY [facility] Last Admin: 06/14/18 08:22 Dose: 10 mg Aspirin (Aspirin) 325 mg PO BID [facility] Last Admin: 06/14/18 16:14 Dose: 325 mg Clonidine HCl (Catapres) 0.2 mg PO Q12 [facility] Last Admin: 06/14/18 21:27 Dose: 0.2 mg Hydromorphone HCl (Dilaudid) 2 mg PO Q4 PRN PRN Reason: Pain, severe (8-10) Oxycodone/Acetaminophen (Percocet 5/325 Mg Tab) 1 tab PO Q4 PRN PRN Reason: Pain, moderate (4-7) Stop: 06/16/18 17:03 Last Admin: 06/14/18 08:19 Dose: 1 tab Senna/Docusate Sodium (Senokot S 50 Mg-8.6 Mg) 2 tab PO 0900 [facility] Last Admin: 06/14/18 08:23 Dose: 2 tab - Labs Labs: 06/05/18 05:25 06/05/18 05:25 Assessment and Plan (1) Knee injuries Status: Acute (2) Unable to ambulate Status: Acute (3) Patellar tendon rupture Status: Acute (4) High blood pressure Status: Acute (5) Morbid obesity with BMI of 40.0-44.9, adult Status: Acute
--- NOTE | 2018-06-14 22:39 | CP.PCM.PN ---
Subjective - Date & Time of Evaluation Date of Evaluation: 06/11/18 Time of Evaluation: 19:15 Objective - Vital Signs/Intake and Output Vital Signs (last 24 hours): Temp Pulse Resp BP Pulse Ox 97.9 F 79 20 144/77 99 06/14/18 20:14 06/14/18 21:27 06/14/18 20:14 06/14/18 21:27 06/14/18 20:14 - Medications Medications: Current Medications Acetaminophen (Tylenol 325mg Tab) 325 mg PO Q4 PRN PRN Reason: Pain, Mild (1-3) Amlodipine Besylate (Norvasc) 10 mg PO DAILY [facility] Last Admin: 06/14/18 08:22 Dose: 10 mg Aspirin (Aspirin) 325 mg PO BID [facility] Last Admin: 06/14/18 16:14 Dose: 325 mg Clonidine HCl (Catapres) 0.2 mg PO Q12 [facility] Last Admin: 06/14/18 21:27 Dose: 0.2 mg Hydromorphone HCl (Dilaudid) 2 mg PO Q4 PRN PRN Reason: Pain, severe (8-10) Oxycodone/Acetaminophen (Percocet 5/325 Mg Tab) 1 tab PO Q4 PRN PRN Reason: Pain, moderate (4-7) Stop: 06/16/18 17:03 Last Admin: 06/14/18 08:19 Dose: 1 tab Senna/Docusate Sodium (Senokot S 50 Mg-8.6 Mg) 2 tab PO 0900 [facility] Last Admin: 06/14/18 08:23 Dose: 2 tab - Labs Labs: 06/05/18 05:25 06/05/18 05:25 Assessment and Plan (1) Knee injuries Status: Acute (2) Unable to ambulate Status: Acute (3) Patellar tendon rupture Status: Acute (4) High blood pressure Status: Acute (5) Morbid obesity with BMI of 40.0-44.9, adult Status: Acute
[2018-06-15 07:35] VITALS: BP 155/87; PULSE 77; RESP 18; TEMP 97.7; O2SAT 96
[2018-06-15] MEDS: Docusate-Senna 50 mg-8.6 mg Tab PO SCH (08:28)
--- NOTE | 2018-06-16 00:50 | CP.PCM.DIS ---
Provider - Provider Date of Admission: 06/04/18 15:07 Attending physician: Raymundo Taylor MD Consults: 06/04/18 15:37 Case Management Referral Routine Comment: Discharge planning/home services Physician Instructions: Reason For Exam: s/p bilateral patellar tendon repair. Reason for Referral: [employer] Maryal 06/04/18 15:40 Physiatry Consult Routine Comment: Consulting Provider: Fabricio Stratton Consulting Physician: Fabricio Stratton Reason for Consult: s/p bilateral patellar tendon repair. 06/05/18 16:07 Physician Consult Routine Comment: Consulting Provider: Lorri Sorto Consulting Physician: Lorri Sorto Reason for Consult: postop ortho mgmt Time Spent in preparation of Discharge (in minutes): 25 Diagnosis - Discharge Diagnosis (1) Knee injuries Status: Acute Priority: High (2) Unable to ambulate Status: Acute Priority: High (3) Patellar tendon rupture Status: Acute Priority: High Comment: S/P Repair (4) High blood pressure Status: Acute Priority: Low (5) Morbid obesity with BMI of 40.0-44.9, adult Status: Acute Priority: Medium Hospital Course - Lab Results Lab Results: Most Recent Lab Values WBC 7.8 K/uL (4.8-10.8) 06/05/18 05:25 RBC 4.23 Mil/uL (4.40-5.90) L 06/05/18 05:25 Hgb 12.7 g/dL (12.0-18.0) 06/05/18 05:25 Hct 38.5 % (35.0-51.0) 06/05/18 05:25 MCV 91.2 fl (80.0-94.0) 06/05/18 05:25 MCH 30.1 pg (27.0-31.0) 06/05/18 05:25 MCHC 33.1 g/dL (33.0-37.0) 06/05/18 05:25 RDW 13.9 % (11.5-14.5) 06/05/18 05:25 Plt Count 219 K/uL (130-400) 06/05/18 05:25 Sodium 139 mmol/l (132-148) 06/05/18 05:25 Potassium 4.1 MMOL/L (3.6-5.0) 06/05/18 05:25 Chloride 104 mmol/L (98-107) 06/05/18 05:25 Carbon Dioxide 28 mmol/L (22-30) 06/05/18 05:25 Anion Gap 11 (10-20) 06/05/18 05:25 BUN 17 mg/dl (9-20) 06/05/18 05:25 Creatinine 0.8 mg/dl (0.8-1.5) 06/05/18 05:25 Est GFR ( Amer) > 60 06/05/18 05:25 Est GFR (Non-Af Amer) > 60 06/05/18 05:25 Random Glucose 101 mg/dL (75-110) 06/05/18 05:25 Calcium 9.2 mg/dL (8.4-10.2) 06/05/18 05:25 Discharge Exam - Head Exam Head Exam: ATRAUMATIC, NORMAL INSPECTION, NORMOCEPHALIC Discharge Plan - Follow Up Plan Condition: GOOD Disposition: HOME/ ROUTINE Instructions: Patella Tendon Repair (DC), Patella Tendon Repair (GEN) Referrals: Lorri Sorto MD [Staff Provider] -
== END 2018-06-15 16:00 | disposition home or self-care (01) | DRG 560 ==
PROVIDERS: ADMIT Internal Medicine; ATTEND Internal Medicine
PROC: F07Z9FZ Gait Training/Functional Ambulation Treatment using Assistive, Adaptive, Supportive or Protective Equipment (ICD-10-PCS; principal; 2018-06-04)
PROC: F08Z4FZ Home Management Treatment using Assistive, Adaptive, Supportive or Protective Equipment (ICD-10-PCS; 2018-06-04)
PROC: F07L6FZ Therapeutic Exercise Treatment of Musculoskeletal System - Lower Back / Lower Extremity using Assistive, Adaptive, Supportive or Protective Equipment (ICD-10-PCS; 2018-06-04)
DX: Z47.89 Encounter for other orthopedic aftercare (principal); Z68.41 Body mass index [BMI] 40.0-44.9, adult; S86.811D Strain of other muscle(s) and tendon(s) at lower leg level, right leg, subsequent encounter; Z98.890 Other specified postprocedural states; E66.01 Morbid (severe) obesity due to excess calories; I10 Essential (primary) hypertension; K52.9 Noninfective gastroenteritis and colitis, unspecified; R26.2 Difficulty in walking, not elsewhere classified; W19.XXXD Unspecified fall, subsequent encounter